=== PATIENT | female | born 1950 | race Caucasian/White ===

== ENCOUNTER → 2016-08-29 | Outpatient (CLI) | payer OTHER ==
[~2016-08-29] MED LIST: ACET650T82 PO; ATEN50TA8 PO; HYDR25TA4 PO; OMEP40CA41 PO; PEDICHW34 PO
--- NOTE | 2016-09-01 12:25 | MAMMOGRAPHY REPORT ---
BILATERAL DIGITAL SCREENING MAMMOGRAM WITH CAD: 08/29/2016 CLINICAL HISTORY: Routine screening. Patient has no complaints. TECHNIQUE: Current study was also evaluated with a Computer Aided Detection (CAD) system. Bilatera l CC and MLO views were obtained. COMPARISON: Comparison is made to exams dated: 04/20/2015 mammogram, 09/16/2013 mammogram, 03/04/2013 mammogram, 03/04/2013 ultrasound, 02/28/2013 mammogram, and 11/12/2011 mammogram - [facility]. BREAST COMPOSITION: The tissue of both breasts is almost entirely fatty. FINDINGS: There are possible new grouped calcifications within the left central breast, which could represent fat necrosis from prior surgery, however, spot magnification views are recommended for fur ther evaluation. The remainder of both breasts are stable compared to prior exams, without suspicious masses, calcifi cations, or areas of architectural distortion noted. There are stable post surgical changes from bi lateral reduction mammoplasty. IMPRESSION: ACR BI-RADS CATEGORY 0: INCOMPLETE EVALUATION: NEED ADDITIONAL IMAGING EVALUATION Left breast calcifications, for which additional imaging evaluation is recommended. The patient sherlyn l be called to schedule an appointment. Approximately 10% of breast cancers are not detected with mammography. A negative mammographic repor t should not delay biopsy if a clinically suggestive mass is present. Ngozi Gomez M.D. /:08/29/2016 16:31:37 Senior Investment Manager: Wen CHAO)(Ag), [facility] letter sent: Addl Imaging 0 BI-RADS Code: ACR BI-RADS Category 0: Incomplete Evaluation: Need Additional Imaging Evaluation
== END | disposition home or self-care (01) ==
LOC: C.MAMM 11:16
PROVIDERS: ATTEND Obstetrics & Gynecology
DX: Z12.31 Encounter for screening mammogram for malignant neoplasm of breast (principal); R92.1 Mammographic calcification found on diagnostic imaging of breast

== ENCOUNTER → 2016-09-26 | Outpatient (CLI) | payer OTHER ==
--- NOTE | 2016-09-26 12:53 | MAMMOGRAPHY REPORT ---
UNILATERAL LEFT DIGITAL DIAGNOSTIC MAMMOGRAM: 09/26/2016 CLINICAL HISTORY: Callback from screening mammogram for left breast calcifications. TECHNIQUE: Spot magnification left CC and ML views were obtained. COMPARISON: Comparison is made to exams dated: 08/29/2016 mammogram, 06/13/2015 mammogram, 04/20/2015 mammogram, 09/16/2013 mammogram, 03/04/2013 mammogram, and 03/04/2013 ultrasound - [facility]. BREAST COMPOSITION: The tissue of the left breast is almost entirely fatty. FINDINGS: There is an 11 mm group of faint heterogeneous calcifications in the left central breast, which are not clearly evident on prior exams. Given the heterogeneous morphology and given that the calcifications are new, they are indeterminate and stereotactic biopsy is recommended for further e valuation. IMPRESSION: ACR BI-RADS CATEGORY 4: SUSPICIOUS New grouped calcifications in the left central breast are indeterminate and stereotactic biopsy is r ecommended for further evaluation. A phone call was made to the physician's office to confirm faxed results were received. The patient has been verbally notified of the results. She tentatively scheduled the biopsy before leaving the department. Approximately 10% of breast cancers are not detected with mammography. A negative mammographic repor t should not delay biopsy if a clinically suggestive mass is present. Ngozi Gomez M.D. /:09/26/2016 08:44:29 Casting House Laborer: Patsy Fuentes, [facility] letter sent: Abnormal 4/5 BI-RADS Code: ACR BI-RADS Category 4: Suspicious
== END | disposition home or self-care (01) ==
LOC: C.MAMM 08:21
PROVIDERS: ATTEND Obstetrics & Gynecology
DX: R92.1 Mammographic calcification found on diagnostic imaging of breast (principal)

== ENCOUNTER → 2016-10-03 | Outpatient (CLI) | payer OTHER ==
--- NOTE | 2016-10-03 13:12 | Discharge Instructions ---
Discharge Instructions Procedure Procedure Date: Oct 03, 2016. Reason for visit: Left Calcs. Discharge Discharge Date: Oct 03, 2016. Discharge Diagnosis: status post breast biopsy Instructions Activity Recommendations: Additional Limitations (see below) Return to School/Work: no limitations Recommended Home Diet: No Limitations Provider Instructions: ACTIVITY RECOMMENDATIONS: * No lifting, pushing, pulling or exercising the affected side for three days. RETURN TO SCHOOL/WORK: * You may return to work/school after the procedure, but do not perform any strenuous activities for 24 to 48 hours. MEDICATIONS: * Tylenol (two 325 mg) every four to six hours if needed for mild pain (if not allergic to Tylenol). DIET: * Resume previous diet. SPECIAL CARE INSTRUCTIONS: * Keep biopsy site dry for 24 hours. May shower after 24 hours, but do not soak (bathe) incision. * May remove Tegaderm (plastic patch) tomorrow AFTER showering. * Leave the steri-strips on for one week. Allow the steri-strips to fall off by themselves. If not off after one week, you may remove them. You may place a Bandaid crosswise over the strips, if desired. * Apply ice 10 minutes on and 10 minutes off as needed. * Wear a bra at bedtime to sleep more comfortably for 2-3 days. * Your referring physician should have the results after approximately 5 to 7 business days. * Call for unusual bleeding, fever, drainage, etc or if you have any questions call during normal business hours or after hours call Dr Gomez, . FOLLOW UP VISIT: Follow-up with Referring Physician as scheduled. Allergies Coded Allergies: Atropine (Verified Allergy, Unknown, RASH, 07/22/12) Hyoscyamine (Verified Allergy, Unknown, RASH, 07/22/12) Phenobarbital (Verified Allergy, Unknown, RASH, 07/22/12) Scopolamine (Verified Allergy, Unknown, RASH, 07/22/12) Latex1 -Allergic Contact Dermititis (Verified Allergy, red sore skin, 07/13) Sveta Soto Recommendations: Call your doctor if: * Temperature above 101 degrees * Pain not relieved by pain medicine ordered * There is increased drainage or redness from any incision * You have any unanswered questions or concerns. Your Doctors Instructions noted above were prepared by provider Ngozi Gomez. Patient Signature Section: Patient Instructions Signature Page Sravanthi Butt Patient (or Guardian) Signature/Date: I have read and understand the instructions given to me by my caregivers. Caregiver/RN/Doctor Signature/Date: The above-named patient and/or guardian has received patient instructions on this date. + Original Patient Signature Page (only) stays with chart. Please make copy for patient.
--- NOTE | 2016-10-03 14:23 | MAMMOGRAPHY REPORT ---
STEREOTACTIC GUIDED BIOPSY LEFT BREAST: 10/03/2016 CLINICAL HISTORY: Left central breast calcifications. PATIENT CONSENT: The procedure, risks, benefits, and alternatives of stereotactic biopsy with clip pl acement were discussed with the patient, and verbal and written consent was obtained. A timeout was performed immediately prior to the procedure. PROCEDURE DESCRIPTION: With stereotactic guidance, aseptic technique, and lidocaine as a local anesth etic (1% lidocaine to anesthetize the skin and 1% lidocaine with epinephrine to anesthetize the deepe r tissues), the area of concern was sampled multiple times with a 9-gauge vacuum-assisted biopsy need le (Suros Eviva). The path of approach was lateral. The specimen radiograph demonstrates calcificat ions to be present in the samples; the samples containing calcifications (labeled "A") were from the samples without calcifications (labeled "B"). A metallic marker clip was placed at the bio psy site. This was confirmed on postprocedure mammograms. Direct pressure was applied at the biopsy site and hemostasis was readily achieved. The patient tolerated the procedure without complication. She was given wound care instructions. COMPARISON: Comparison is made to exams dated: 09/26/2016 mammogram, 08/29/2016 mammogram, 06/13/2015 m ammogram, 04/20/2015 mammogram, 02/28/2013 mammogram, and 11/12/2011 mammogram - [facility]. IMPRESSION: STEREOTACTIC GUIDED BIOPSY Stereotactic biopsy of indeterminate calcifications in the left central breast, with clip placement. The patient will receive pathology results from her referring provider. Ngozi Gomez M.D. ah/:10/03/2016 13:14:20 Attending Technologist: Patsy Clayton RT(R)(M), [facility] Photography Colorist: Zeeshan Elam RT(R)(M), [facility]
--- NOTE | 2016-10-03 14:25 | MAMMOGRAPHY REPORT ---
UNILATERAL LEFT DIGITAL DIAGNOSTIC MAMMOGRAM: 10/03/2016 CLINICAL HISTORY: Status post left breast stereotactic biopsy. TECHNIQUE: Left CC and LM views were obtained. COMPARISON: Comparison is made to exams dated: 09/26/2016 mammogram, 08/29/2016 mammogram, 06/13/2015 m ammogram, and 04/20/2015 mammogram - [facility]. BREAST COMPOSITION: The tissue of the left breast is almost entirely fatty. FINDINGS: Preprocedural left LM view was obtained for biopsy planning purposes. Postprocedural left upper limb and cc views were obtained, which shows a new biopsy marker clip in the left breast statu s post stereotactic biopsy of left central breast calcifications. There is mild medial migration of the biopsy marker clip by approximately 1.5 cm, likely due to accordion effect. No significant postb iopsy hematoma is seen. IMPRESSION: POST PROCEDURE IMAGING FOR MARKER PLACEMENT New biopsy marker clip status post left breast stereotactic biopsy. Pathology results are pending. Approximately 10% of breast cancers are not detected with mammography. A negative mammographic report should not delay biopsy if a clinically suggestive mass is present. Ngozi Gomez M.D. /:10/03/2016 13:33:51 [place] Polisher: Zeeshan ANTOINE(Larry)(Ag), [facility] BI-RADS Code: Post Procedure Imaging For Marker Placement
== END | disposition home or self-care (01) ==
LOC: C.MAMM 12:24
PROVIDERS: ATTEND Obstetrics & Gynecology
DX: R92.0 Mammographic microcalcification found on diagnostic imaging of breast (principal)

== ENCOUNTER → 2017-01-02 | Outpatient (CLI) | payer OTHER ==
[2017-01-02 14:57] LABS: BLOOD UREA NITROGEN 18 mg/dl (7-18); CREATININE 0.83 mg/dl (0.60-1.20)
== END | disposition home or self-care (01) ==
LOC: C.LAB 12:23
PROVIDERS: ATTEND Obstetrics & Gynecology
DX: M54.9 Dorsalgia, unspecified (principal); R10.2 Pelvic and perineal pain

== ENCOUNTER → 2017-01-13 | Outpatient (CLI) | payer OTHER | END | disposition home or self-care (01) | LOC: C.PAPS 15:16 | PROVIDERS: ATTEND Obstetrics & Gynecology | DX: Z01.419 Encounter for gynecological examination (general) (routine) without abnormal findings (principal) ==

== ENCOUNTER 2019-10-09 18:07 | Observation (INO) ==
[2019-10-09] MEDS ORDERED: ONDANSETRON INJ 2 MG/ML 2 ML VIAL IV STA (18:43)
[2019-10-09] MEDS ORDERED: LIDOCAINE HCL 1% 20 ML VIAL INFIL ONE (18:43)
[2019-10-09] MEDS ORDERED: DIPHTHERIA/TETANUS/PERTUSSIS 0.5 ML SYR/VIAL IM ONE (18:43)
[2019-10-09] MEDS ORDERED: MoRPHine SULFATE 4 MG/ML 1 ML CARP\\VIAL IV STA (18:43)
--- NOTE | 2019-10-09 18:50 | Emergency Department Note ---
History of Present Illness General Chief complaint: Laceration/Cut (Suture/Dermabond) Stated complaint: LAC ON HEAD Time Seen by Provider: 10/09/19 18:34 Source: patient History of Present Illness Provider complaint: Back pain Onset (ago): minute(s) Location: back Radiation: flank (Bilaterally) Severity: moderate Pain Consistency: + constant Quality: + sharp Exacerbated By: + movement Associated symptoms: no cough, no fever/chills and no nausea/vomiting This is a 69-year-old woman who presents with injuries after a fall. The patient states that she was using a Rototiller which had some hard ground and jerked forward pulling her down onto the ground with it. She hit her head on the Rototiller then fell face first onto the ground. She did have a few seconds of LOC per her daughter. She complains of a diffuse headache. She also states that her nose feels broken. She mostly complains of back pain which is in the m id back radiating to her flanks and ribs. She describes it as sharp. Is worse with movement and deep breaths. She does have some associated shortness of breath with it. She denies any recent illness or fever. She denies any abdominal pain. She has no hip pain or extremity pain. She does not know her last tetanus shot and believes she is not up-to-date. She complains of mid facial pain but no jaw pain. Home Medications Home Medications Medication Instructions Recorded Confirmed Type atenolol 50 mg tablet 50 mg PO DAILY 01/28/19 10/09/19 History hydrochlorothiazide 25 mg tablet 25 mg PO DAILY 01/28/19 10/09/19 History omeprazole 40 mg capsule,delayed 40 mg PO BID 01/28/19 10/09/19 History release calcium carbonate-vitamin D3 1 tab PO BID 10/09/19 10/09/19 History [Caltrate 600 plus D] cholecalciferol (vitamin D3) 50 mcg PO DAILY 10/09/19 10/09/19 History [Vitamin D3] garlic 1,000 mg PO DAILY 10/09/19 10/09/19 History meloxicam [Mobic] 15 mg PO DAILY 10/09/19 10/09/19 History multivitamin 1 tab PO DAILY 10/09/19 10/09/19 History Allergies Allergy/AdvReac Type Severity Reaction Status Date / Time atropine Allergy Unknown RASH Verified 10/09/19 19:00 hyoscyamine Allergy Unknown RASH Verified 10/09/19 19:00 phenobarbital Allergy Unknown RASH Verified 10/09/19 19:00 scopolamine Allergy Unknown RASH Verified 10/09/19 19:00 latex Allergy red sore Verified 10/09/19 19:00 skin Past Med/Surg History Medical History Acid reflux disease with ulcer (Chronic) HTN, goal to be determined (Chronic) Surgical History H/O abdominoplasty (Resolved) History of bladder surgery (Resolved) History of hernia surgery (Resolved) S/P cholecystectomy (Resolved) S/P hysterectomy (Resolved) Social History Preferred Language: [place] Visual Impairment: Partially Limited Hearing Ability: Normal Beliefs That Will Affect Care: None marital status: Current Living Situation: Spouse current occupational status: retired Feels Safe at Home: Yes Smoking Status: Never smoker Hx Alcohol Use: Yes (seldom) Alcohol Intake Frequency: Rarely Hx Substance Use: No Review of Systems See HPI for pertinent positives & negatives. and A total of 10 systems reviewed and were otherwise negative Physical Exam Vital Signs Vital Signs - 24 hr 10/09/19 18:08 10/09/19 18:42 10/09/19 20:00 Pulse Rate 50 L Pulse Rate [Finger] 66 Pulse Rate from SpO2 Sensor Pulse Rhythm [Finger] Regular Pulse Strength [Finger] Normal Respiratory Rate 20 18 Respiratory Effort / Characteristics Non-Labored Spontaneous Respiratory Depth Normal Respiratory Pattern Regular Blood Pressure 147/81 H Blood Pressure [Right Arm] 131/84 Blood Pressure Mean 103 Blood Pressure Mean [Right Arm] 99 Blood Pressure Position [Right Arm] Lying Pulse Oximetry 98 96 Oxygen Delivery Method Room Air Room Air Room Air Sepsis Recent Fever Within 48 Hours No Sepsis New/Unexplained Change in Mental Status No Sepsis Action Taken by Nursing No Action Required 10/09/19 20:29 10/09/19 20:42 10/09/19 21:00 Pulse Rate 65 72 51 L Pulse Rate [Finger] Pulse Rate from SpO2 Sensor 64 66 51 L Pulse Rhythm [Finger] Pulse Strength [Finger] Respiratory Rate Respiratory Effort / Characteristics Respiratory Depth Respiratory Pattern Blood Pressure 131/84 Blood Pressure [Right Arm] Blood Pressure Mean 106 Blood Pressure Mean [Right Arm] Blood Pressure Position [Right Arm] Pulse Oximetry 97 97 97 Oxygen Delivery Method Sepsis Recent Fever Within 48 Hours Sepsis New/Unexplained Change in Mental Status Sepsis Action Taken by Nursing Constitutional: Vital signs reviewed. Eyes: Pupils are equal round reactive to light. Conjunctiva are noninjected. ENT: Pharynx is clear without erythema or exudate. Mucous membranes are moist. Tenderness and swelling to the nasal bridge without septal hematoma or active epistaxis. There is some mild mid facial tenderness without bony depression or mobility. No midline tenderness to cervical spine. Respiratory: Clear to auscultation bilaterally. Breath sounds are equal bilaterally. Cardiovascular: Regular rate and rhythm. No rubs or gallops. GI: Soft, nondistended and nontender. Bowel sounds are present. Musculoskeletal: Tenderness to the lower thoracic spine without step-off or deformity. No tenderness to the hips or lower extremities or upper extremities. Integumentary: 2.5 cm laceration to the right scalp. Neurological: The patient is awake and alert. Cranial nerves II to XII are intact. No entrapment with extraocular movements. No diplopia. Motor and sensation are intact throughout all extremities. Psychiatric: Anxious. Procedures Laceration Laceration 1: Site: scalp Side (If applicable): right Size (cm): 2.5 Description: other (L-shaped) Depth: simple, single layer Local Anesthetic: lidocaine 1% Amount of anesthesia used (mL): 3 Pre-repair: wound explored and irrigated extensively Skin layer closed with: other (skin staple) Number of sutures: 3 Course Administered Medications Potassium Chloride 40 meq/ (Sodium Chloride) 1,020 mls @ 60 mls/hr IV .Q17H ONE Stop: 10/10/19 15:44 Last Admin: 10/09/19 23:52 Dose: 60 mls/hr Documented by: [id number] Ketorolac Tromethamine (Toradol) 15 mg IV Q6H PRN PRN Reason: Pain Stop: 10/14/19 21:29 Last Admin: 10/09/19 22:31 Dose: 15 mg Documented by: [id number] Lidocaine (Lidoderm 5%) 1 patch TD 2100 CHECO Stop: 11/08/19 20:59 Last Admin: 10/09/19 21:01 Dose: 1 patch Documented by: [id number] Discontinued Medications Diphtheria/Pertussis/Tetanus Vacc (Adacel) 0.5 ml IM .ONCE ONE Stop: 10/09/19 18:44 Last Admin: 10/09/19 19:27 Dose: 0.5 ml Documented by: [id number] Magnesium Sulfate/Dextrose (Magnesium Sulfate / D5w) 1 gm in 100 mls @ 100 mls/hr IV ONE ONE Stop: 10/09/19 23:44 Last Admin: 10/09/19 23:53 Dose: 100 mls/hr Documented by: [id number] Ioversol (Optiray 320 100ml) 94 ml IV ONCE PRN PRN Reason: Interaction Checking Stop: 10/13/19 19:26 Last Admin: 10/09/19 19:27 Dose: 94 ml Documented by: [id number] Lidocaine HCl (Xylocaine 1% (Local)) 10 ml INFIL NOW ONE Stop: 10/09/19 18:44 Last Admin: 10/09/19 20:44 Dose: 10 ml Documented by: [id number] Morphine Sulfate (Morphine Sulfate) 4 mg IV NOW STA Stop: 10/09/19 18:44 Last Admin: 10/09/19 19:26 Dose: 4 mg Documented by: [id number] Ondansetron HCl (Zofran) 4 mg IV NOW STA Stop: 10/09/19 18:44 Last Admin: 10/09/19 19:26 Dose: 4 mg Documented by: [id number] Potassium Chloride (Klor-Con M20) 40 meq PO NOW STA Stop: 10/09/19 22:27 Last Admin: 10/09/19 23:53 Dose: 40 meq Documented by: [id number] Medical Decision Making Differential Diagnosis ICH, skull fracture, facial fracture, vertebral fracture, rib fracture, visceral injury Medical Records Attestation: I reviewed the patient's medical records. I did perform a limited focused review of portions of the patient's old chart on the electronic medical record. The patient has had no recent pertinent visits to this hospital. Home Medications Current Medication List: was personally reviewed by me Laboratory Data Attestation: I reviewed the patient's lab results. Result diagrams: 10/09/19 19:55 10/09/19 21:17 Lab Results 10/09/19 10/09/19 10/09/19 Range/Units 19:01 19:55 19:55 WBC 11.74 H (4.8-10.8) K/uL RBC 4.35 (4.2-5.4) M/uL Hgb 13.0 (12.0-16.0) g/dL POC Hgb 13.3 (12.0-16.0) g/dl Hct 38.1 (37-47) % POC Hct 39 (37-47) % MCV 87.6 (80-100) fL MCH 29.9 (25-34) pg MCHC 34.1 (32-36) g/dL RDW Std Deviation 43.8 (36.4-46.3) fL RDW Coeff of Aylin 13.6 (11.5-14.5) % Plt Count 222 (130-400) K/uL MPV 11.4 H (7.4-10.4) fL Immature Gran % (Auto) 0.4 % Neut % (Auto) 87.6 % Lymph % (Auto) 7.7 % [place] % (Auto) 3.4 % Eos % (Auto) 0.7 % Baso % (Auto) 0.2 % Immature Gran # (Auto) 0.05 H (0.00-0.02) K/uL Neut # (Auto) 10.29 H (1.4-6.5) K/uL Lymph # (Auto) 0.90 L (1.2-3.4) K/uL [place] # (Auto) 0.40 (0.11-0.59) K/uL Eos # (Auto) 0.08 (0-0.5) K/uL Baso # (Auto) 0.02 (0-0.2) K/uL POC Sodium 138 (135-144) mmol/L Sodium 137 (136-145) mmol/L POC Potassium 3.1 L (3.3-5.0) mmol/L Potassium (3.5-5.1) mmol/L POC Chloride 105 (101-112) mmol/L Chloride 104 (98-107) mmol/L Carbon Dioxide 25 (21-32) mmol/L POC Total CO2 23 L (24-31) mmol/L Anion Gap 8.0 (3-11) POC Anion Gap 14.0 L (16-25) mmol/L POC BUN 28 H (7-18) mg/dl BUN 24 H (7-18) mg/dl Creatinine 0.99 (0.6-1.2) mg/dl POC Creatinine 0.9 (0.6-1.3) mg/dl Est Cr Clr Drug Dosing 64.8 ml/min Est GFR ( Amer) 66.9 Est GFR (Non-Af Amer) 57.7 BUN/Creatinine Ratio 24.4 H (10-20) Glucose 146 H (70-99) mg/dl POC Glucose (other) 149 H (70-99) mg/dl Calcium 9.8 (8.5-10.1) mg/dl POC Ioniz Calcium Katie 1.20 (1.12-1.32) mmol/l Magnesium Cancelled Total Bilirubin 0.6 (0.2-1) mg/dl AST (15-37) U/L ALT 28 (12-78) U/L Alkaline Phosphatase 66 (45-117) U/L Total Protein 7.6 (6.4-8.2) gm/dl Albumin 3.6 (3.4-5.0) gm/dl Globulin 4.0 (2.5-4.0) gm/dl Albumin/Globulin Ratio 0.9 (0.9-2) 10/09/19 Range/Units 21:17 WBC (4.8-10.8) K/uL RBC (4.2-5.4) M/uL Hgb (12.0-16.0) g/dL POC Hgb (12.0-16.0) g/dl Hct (37-47) % POC Hct (37-47) % MCV (80-100) fL MCH (25-34) pg MCHC (32-36) g/dL RDW Std Deviation (36.4-46.3) fL RDW Coeff of Aylin (11.5-14.5) % Plt Count (130-400) K/uL MPV (7.4-10.4) fL Immature Gran % (Auto) % Neut % (Auto) % Lymph % (Auto) % [place] % (Auto) % Eos % (Auto) % Baso % (Auto) % Immature Gran # (Auto) (0.00-0.02) K/uL Neut # (Auto) (1.4-6.5) K/uL Lymph # (Auto) (1.2-3.4) K/uL [place] # (Auto) (0.11-0.59) K/uL Eos # (Auto) (0-0.5) K/uL Baso # (Auto) (0-0.2) K/uL POC Sodium (135-144) mmol/L Sodium (136-145) mmol/L POC Potassium (3.3-5.0) mmol/L Potassium 2.8 L (3.5-5.1) mmol/L POC Chloride (101-112) mmol/L Chloride (98-107) mmol/L Carbon Dioxide (21-32) mmol/L POC Total CO2 (24-31) mmol/L Anion Gap (3-11) POC Anion Gap (16-25) mmol/L POC BUN (7-18) mg/dl BUN (7-18) mg/dl Creatinine (0.6-1.2) mg/dl POC Creatinine (0.6-1.3) mg/dl Est Cr Clr Drug Dosing ml/min Est GFR ( Amer) Est GFR (Non-Af Amer) BUN/Creatinine Ratio (10-20) Glucose (70-99) mg/dl POC Glucose (other) (70-99) mg/dl Calcium (8.5-10.1) mg/dl POC Ioniz Calcium Katie (1.12-1.32) mmol/l Magnesium 1.9 Total Bilirubin (0.2-1) mg/dl AST (15-37) U/L ALT (12-78) U/L Alkaline Phosphatase (45-117) U/L Total Protein (6.4-8.2) gm/dl Albumin (3.4-5.0) gm/dl Globulin (2.5-4.0) gm/dl Albumin/Globulin Ratio (0.9-2) Imaging Data Radiologist's Impression: CT thoracic spine wo con CT DOSE: HISTORY: Trauma. Pain. trauma eval for injury TECHNIQUE: Multiaxial CT images of the thoracic spine were performed and reformatted in the sagittal and coronal plane without the use of contrast. A dose lowering technique was utilized adhering to the principles of ALARA. COMPARISON: None. FINDINGS: No fractures. No subluxation. Paraspinal soft tissues are unremarkable. Slight wedge deformity T12 of uncertain age. Osteopenia. IMPRESSION: 1. Slight wedge deformity superior endplate T12 uncertain age. 2. Generalized degenerative disc change. 3. Osteopenia. ACT 112: Negative or not required by law. The above report was generated using voice recognition software. It may contain grammatical, syntax or spelling errors. Electronically signed by: Lan Dueñas M.D. 10/09/2019 7:[address] lumbar spine wo con CT DOSE: HISTORY: trauma eval for injury TECHNIQUE: Multiaxial CT images of the lumbar spine were performed and reformatted in the sagittal and coronal plane without the use of contrast. A dose lowering technique was utilized adhering to the principles of ALARA. COMPARISON: None. FINDINGS: No fractures. No subluxation. Paraspinal soft tissues are unremarkable. Moderate generalized degenerative disc change. Osteopenia. IMPRESSION: No fractures within the lumbar spine. ACT 112: Negative or not required by law. The above report was generated using voice recognition software. It may contain grammatical, syntax or spelling errors. Electronically signed by: Lan Dueñas M.D. 10/09/2019 7:[address] head/brain wo con CT DOSE: HISTORY: Trauma trauma eval for injury TECHNIQUE: Multiaxial CT images of the head were performed without the use of intravenous contrast. A dose lowering technique was utilized adhering to the principles of ALARA. Comparison: None. Findings: Fracture posterior left maxillary sinus. Hypertrophic and edematous changes the nasal turbinates. The calvarium and skull base are intact. The ventricles and sulci are within normal limits. There is no mass, hematoma, midline shift, or acute infarct. Impression: No acute intracranial abnormality. Normal brain. Probable left maxillary sinus fracture. ACT 112: Negative or not required by law. The above report was generated using voice recognition software. It may contain grammatical, syntax or spelling errors. Electronically signed by: Lan Dueñas M.D. 10/09/2019 7:[address] facial bones wo con CT DOSE: HISTORY: Trauma. Pain. trauma eval for injury TECHNIQUE: Multiaxial CT images of the maxillofacial region were performed and reformatted in the coronal plane without the use of contrast. A dose lowering technique was utilized adhering to the principles of ALARA. COMPARISON: None. FINDINGS: The right orbital margins intact. There is a fracture of the base of the left orbital margin. Estimated anterior displacement of 2 mm. There is no evidence for muscular entrapment. There is a fracture lateral wall left maxillary sinus, as well as a nondisplaced hairline fracture medial wall left maxillary sinus. There is considerable hypertrophic and/or edematous changes the nasal turbinates bilaterally. All remaining sinuses are grossly clear. IMPRESSION: 1. Fracture lateral and medial wall left maxillary sinus. 2.. Fracture left inferior orbital floor with inferior displacement of 2 mm. No evidence for muscular trapment. 3. Edematous changes the nasal turbinates bilaterally. ACT 112: Negative or not required by law. The above report was generated using voice recognition software. It may contain grammatical, syntax or spelling errors. Electronically signed by: Lan Dueñas M.D. 10/09/2019 7:[address] chest w con CT DOSE: HISTORY: Trauma trauma eval for injury TECHNIQUE: Multiaxial CT images of the chest were performed following the intravenous administration of contrast. A dose lowering technique was utilized adhering to the principles of ALARA. COMPARISON: None. FINDINGS: Nondisplaced fractures right fourth through seventh ribs. Small right effusion. Lungs otherwise appear clear. No evidence for pneumothorax. No significant mediastinal or hilar adenopathy. IMPRESSION: 1. Nondisplaced cortical fractures right fourth through seventh ribs 2. Small right pleural effusion. 3. Study is otherwise negative. ACT 112: Negative or not required by law. The above report was generated using voice recognition software. It may contain grammatical, syntax or spelling errors. Electronically signed by: Lan Dueñas M.D. 10/09/2019 7:[address] cervical spine wo con CT DOSE: 3042.51 mGy.cm HISTORY: Trauma. Pain. trauma eval for injury TECHNIQUE: Multiaxial CT images of the cervical spine were performed and reformatted in the sagittal and coronal plane without the use of contrast. A dose lowering technique was utilized adhering to the principles of ALARA. COMPARISON: None. FINDINGS: No fractures. No subluxation. Prevertebral soft tissues and the C1-C2 interval are intact. No pneumothorax. Moderate degenerative disc change from C4 through C7 IMPRESSION: No fractures within the cervical spine. Moderate degenerative change. ACT 112: Negative or not required by law. The above report was generated using voice recognition software. It may contain grammatical, syntax or spelling errors. Electronically signed by: Lan Dueñas M.D. 10/09/2019 7:[address] abd pelvis IV con only CT DOSE: HISTORY: trauma eval for injury TECHNIQUE: Multiaxial CT images of the abdomen and pelvis were performed following the use of intravenous contrast. A dose lowering technique was utilized adhering to the principles of ALARA. COMPARISON STUDY: None. FINDINGS: Fracture of several right ribs in the midaxillary line as previously described. The liver spleen and pancreas are unremarkable. Kidneys enhance uniformly. There are several small parapelvic cysts bilaterally. Nonobstructive bowel pattern. Bladder is midline. There is no free fluid within the abdomen or pelvic cul-de-sac regions. Minimal right inguinal infiltrative change possibly related to prior surgical or other intervention. Slight wedge deformity superior endplate T12. IMPRESSION: 1. Slight wedge deformity superior endplate T12. This appears to be acute. 2. Small right pleural effusion. 3. Several right rib fractures which have been described previously. 4. No additional acute abnormality of the abdomen or pelvis. ACT 112: Negative or not required by law. The above report was generated using voice recognition software. It may contain grammatical, syntax or spelling errors. Electronically signed by: Lan Dueñas M.D. 10/09/2019 7:41 PM Blood Pressure Blood Pressure Findings: Elevated blood pressure Blood Pressure Disposition: further management by hospitalist Head Trauma GCS Score: 15 MDM Narrative I did evaluate the patient as noted above. The patient is presenting with injuries after using her Rototiller which pulled her forward and she landed on her face with LOC. IV access was established. I did place an order for continuous cardiac monitoring. The monitor showed sinus bradycardia rate of 50. I did treat her with IV morphine and Zofran. She was also given an Adacel booster IM. I did order and review the patient's blood work as noted in the electronic medical record. Her white blood cell count is slightly elevated. She is not anemic. Potassium is 3.1. I did order a CT of the head, facial bones, cysts fine, chest, abdomen and pelvis. I did review the images myself as well as the radiology report as described above. She has a T12 mild wedge deformity. She also has 4 rib fractures on the right side. There is a small pleural effusion as well on the right side. She also has a maxillary sinus fracture and left orbital fracture. I did discuss the test results with the patient. I did recommend hospitalization for further care and evaluation. I did repair her laceration as described above. I did discuss case with the hospitalist and case management director. Impression & Plan Multiple fractures of ribs, Closed T12 fracture, Head injury, closed, with brief LOC, Laceration of scalp, Extensive facial fractures Discharge Plan Visit Data *Final* Discharge Date/Time: 10/09/19 22:11 Chief Complaint: Laceration/Cut (Suture/Dermabond) Stated Complaint: LAC ON HEAD ED Provider: Andre Mckinley Discharge Problem: Multiple fractures of ribs, Closed T12 fracture, Head injury, closed, with brief LOC, Laceration of scalp, Extensive facial fractures Patient Disposition: Admitted As Inpatient Discharge Instructions Interventions: ED Discharge Assessment Last Done: 10/09/19 22:11 Discharge Problem: Multiple fractures of ribs Qualifiers: Encounter type: initial encounter Fracture type: closed Laterality: right Qualified Code(s): S22.41XA - Multiple fractures of ribs, right side, initial encounter for closed fracture Closed T12 fracture Qualifiers: Encounter type: initial encounter Fracture morphology: wedge compression Qualified Code(s): S22.080A - Wedge compression fracture of T11-T12 vertebra, initial encounter for closed fracture Laceration of scalp Qualifiers: Encounter type: initial encounter Qualified Code(s): S01.01XA - Laceration without foreign body of scalp, initial encounter Extensive facial fractures Qualifiers: Encounter type: initial encounter Fracture type: closed Qualified Code(s): S02.92XA - Unspecified fracture of facial bones, initial encounter for closed fracture
[2019-10-09 19:03] LABS: Basophils # (auto) 0.02 K/uL (0-0.2); Basophils % (auto) 0.2 %; Eosinophils # (auto) 0.08 K/uL (0-0.5); Eosinophils % (auto) 0.7 %; Hematocrit (blood only) 38.1 % (37-47); Immature Granulocytes # (auto) 0.05 K/uL (0.00-0.02); Immature Granulocytes % (auto) 0.4 %; Lymphocytes % (auto) 7.7 %; Mean Corpuscular Hemoglobin 29.9 pg (25-34); Mean Corpuscular Hgb Conc 34.1 g/dL (32-36); Mean Corpuscular Volume 87.6 fL (80-100); Mean Platelet Volume 11.4 fL (7.4-10.4); Monocytes % (auto) 3.4 %; Neutrophils # (auto) 10.29 K/uL (1.4-6.5); Neutrophils % (auto) 87.6 %; Platelet Count 222 K/uL (130-400); RDW Coefficient of Variation 13.6 % (11.5-14.5); RDW Standard Deviation 43.8 fL (36.4-46.3); Red Blood Count 4.35 M/uL (4.2-5.4); White Blood Count 11.74 K/uL (4.8-10.8)
[2019-10-09 19:13] LABS: iSTAT Creatinine 0.9 mg/dl (0.6-1.3); iSTAT Hemoglobin 13.3 g/dl (12.0-16.0); iSTAT Ionized Calcium 1.2 mmol/l (1.12-1.32); iSTAT Potassium 3.1 mmol/L (3.3-5.0)
[2019-10-09] MEDS ORDERED: IOVERSOL 100ml IV PRN (19:27)
--- NOTE | 2019-10-09 19:27 | CT Scan Report ---
CT head/brain wo con CT DOSE: HISTORY: Trauma trauma eval for injury TECHNIQUE: Multiaxial CT images of the head were performed without the use of intravenous contrast. A dose lowering technique was utilized adhering to the principles of ALARA. Comparison: None. Findings: Fracture posterior left maxillary sinus. Hypertrophic and edematous changes the nasal turbi nates. The calvarium and skull base are intact. The ventricles and sulci are within normal limits. Th ere is no mass, hematoma, midline shift, or acute infarct. Impression: No acute intracranial abnormality. Normal brain. Probable left maxillary sinus fracture. ACT 112: Negative or not required by law. The above report was generated using voice recognition software. It may contain grammatical, syntax or spelling errors. Electronically signed by: Lan Dueñas M.D. 10/09/2019 7:26 PM
--- NOTE | 2019-10-09 19:29 | CT Scan Report ---
CT cervical spine wo con CT DOSE: 3042.51 mGy.cm HISTORY: Trauma. Pain. trauma eval for injury TECHNIQUE: Multiaxial CT images of the cervical spine were performed and reformatted in the sagittal and coronal plane without the use of contrast. A dose lowering technique was utilized adhering to th e principles of ALARA. COMPARISON: None. FINDINGS: No fractures. No subluxation. Prevertebral soft tissues and the C1-C2 interval are intact. No pneumothorax. Moderate degenerative disc change from C4 through C7 IMPRESSION: No fractures within the cervical spine. Moderate degenerative change. ACT 112: Negative or not required by law. The above report was generated using voice recognition software. It may contain grammatical, syntax or spelling errors. Electronically signed by: Lan Dueñas M.D. 10/09/2019 7:27 PM
[2019-10-09 19:31] LABS: Albumin Globulin Ratio 0.9 (0.9-2); Albumin Level 3.6 gm/dl (3.4-5.0); BUN Creatinine Ratio 24.4 (10-20); Bilirubin,Total 0.6 mg/dl (0.2-1); Calcium 9.8 mg/dl (8.5-10.1); Creatinine Clr Calc Pharmacy 64.8 ml/min; Est GFR (African American) 66.9; Est GFR (Non-African American) 57.7; Total Protein 7.6 gm/dl (6.4-8.2)
--- NOTE | 2019-10-09 19:32 | CT Scan Report ---
CT facial bones wo con CT DOSE: HISTORY: Trauma. Pain. trauma eval for injury TECHNIQUE: Multiaxial CT images of the maxillofacial region were performed and reformatted in the cor onal plane without the use of contrast. A dose lowering technique was utilized adhering to the [place]. COMPARISON: None. FINDINGS: The right orbital margins intact. There is a fracture of the base of the left orbital margin. Estimated anterior displacement of 2 mm. There is no evidence for muscular entrapment. There is a fracture lateral wall left maxillary sinus, as well as a nondisplaced hairline fracture me dial wall left maxillary sinus. There is considerable hypertrophic and/or edematous changes the nasal turbinates bilaterally. All remaining sinuses are grossly clear. IMPRESSION: 1. Fracture lateral and medial wall left maxillary sinus. 2.. Fracture left inferior orbital floor with inferior displacement of 2 mm. No evidence for muscular trapment. 3. Edematous changes the nasal turbinates bilaterally. ACT 112: Negative or not required by law. The above report was generated using voice recognition software. It may contain grammatical, syntax or spelling errors. Electronically signed by: Lan Dueñas M.D. 10/09/2019 7:31 PM
--- NOTE | 2019-10-09 19:34 | CT Scan Report ---
CT thoracic spine wo con CT DOSE: HISTORY: Trauma. Pain. trauma eval for injury TECHNIQUE: Multiaxial CT images of the thoracic spine were performed and reformatted in the sagittal and coronal plane without the use of contrast. A dose lowering technique was utilized adhering to th e principles of ALARA. COMPARISON: None. FINDINGS: No fractures. No subluxation. Paraspinal soft tissues are unremarkable. Slight wedge deform ity T12 of uncertain age. Osteopenia. IMPRESSION: 1. Slight wedge deformity superior endplate T12 uncertain age. 2. Generalized degenerative disc change. 3. Osteopenia. ACT 112: Negative or not required by law. The above report was generated using voice recognition software. It may contain grammatical, syntax or spelling errors. Electronically signed by: Lan Dueñas M.D. 10/09/2019 7:33 PM
--- NOTE | 2019-10-09 19:36 | CT Scan Report ---
CT lumbar spine wo con CT DOSE: HISTORY: trauma eval for injury TECHNIQUE: Multiaxial CT images of the lumbar spine were performed and reformatted in the sagittal an d coronal plane without the use of contrast. A dose lowering technique was utilized adhering to the principles of ALARA. COMPARISON: None. FINDINGS: No fractures. No subluxation. Paraspinal soft tissues are unremarkable. Moderate generalized degenerative disc change. Osteopenia. IMPRESSION: No fractures within the lumbar spine. ACT 112: Negative or not required by law. The above report was generated using voice recognition software. It may contain grammatical, syntax or spelling errors. Electronically signed by: Lan Dueñas M.D. 10/09/2019 7:34 PM
--- NOTE | 2019-10-09 19:39 | CT Scan Report ---
CT chest w con CT DOSE: HISTORY: Trauma trauma eval for injury TECHNIQUE: Multiaxial CT images of the chest were performed following the intravenous administration of contrast. A dose lowering technique was utilized adhering to the principles of ALARA. COMPARISON: None. FINDINGS: Nondisplaced fractures right fourth through seventh ribs. Small right effusion. Lungs otherwise appear clear. No evidence for pneumothorax. No significant mediastinal or hilar adenopathy. IMPRESSION: 1. Nondisplaced cortical fractures right fourth through seventh ribs 2. Small right pleural effusion. 3. Study is otherwise negative. ACT 112: Negative or not required by law. The above report was generated using voice recognition software. It may contain grammatical, syntax or spelling errors. Electronically signed by: Lan Dueñas M.D. 10/09/2019 7:38 PM
--- NOTE | 2019-10-09 19:43 | CT Scan Report ---
CT abd pelvis IV con only CT DOSE: HISTORY: trauma eval for injury TECHNIQUE: Multiaxial CT images of the abdomen and pelvis were performed following the use of intrave nous contrast. A dose lowering technique was utilized adhering to the principles of ALARA. COMPARISON STUDY: None. FINDINGS: Fracture of several right ribs in the midaxillary line as previously described. The liver spleen and pancreas are unremarkable. Kidneys enhance uniformly. There are several small pa rapelvic cysts bilaterally. Nonobstructive bowel pattern. Bladder is midline. There is no free fluid within the abdomen or pelvic cul-de-sac regions. Minimal right inguinal infiltrative change possibly related to prior surgical or other intervention. Slight wedge deformity superior endplate T12. IMPRESSION: 1. Slight wedge deformity superior endplate T12. This appears to be acute. 2. Small right pleural effusion. 3. Several right rib fractures which have been described previously. 4. No additional acute abnormality of the abdomen or pelvis. ACT 112: Negative or not required by law. The above report was generated using voice recognition software. It may contain grammatical, syntax or spelling errors. Electronically signed by: Lan Dueñas M.D. 10/09/2019 7:41 PM
[2019-10-09] MEDS ORDERED: LIDOCAINE 5% 1 PATCH TD SCH (21:00)
--- NOTE | 2019-10-09 21:17 | History & Physical Report ---
Date of Service October 09, 2019 Assessment & Plan (1) Cerebral concussion: Secondary to fall Traumatic rib fractures secondary to fall Orbital fractures left secondary to head trauma Hypertension slight elevated secondary discomfort Hypokalemia secondary diuretic Rx Hyperglycemia rule out DM Medical telemetry GCS neurochecks Neurology consult RE cerebral concussion Incentive spirometry, analgesia for rib fractures, Lidoderm patch trial ENT consultation Re: Left orbital fracture Orthopedics spine consult Re: T12 compression fracture Replace potassium, hold home diuretic for now Check hemoglobin A1c PT OT eval DVT prophylaxis. SCDs RE traumatic scalp wound Full code Patient's daughter requesting updates from providers. Ms. Niurka Schmitt, contact #[phone]. Text document was generated using [employer] voice recognition software. It may contain grammatical or spelling errors. Kindly contact undersigned for clarification of any documentation item in question. History of Present Illness Chief Complaint: Fall, head trauma Primary Care Provider: Tara Dior, History obtained from patient, family, and records. Medical history significant for hypertension, GERD, chronic back pain, osteoporosis. Patient was using her lawnmower today when the mower hit hard ground jerked forward subsequently putting patient down to the ground culminating in head trauma. As per patient daughter, she rushed to mother after fall. Patient unconscious for me, few moments. Patient woke up with achy headache, swollen le ft eye and achy pleuritic back pain with some shortness of breath. No unusual visual blurriness. Patient brought to the ER for evaluation. Scalp wound stapled at the ER. 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, lives with Allergies Allergy/AdvReac Type Severity Reaction Status Date / Time atropine Allergy Unknown RASH Verified 10/09/19 19:00 hyoscyamine Allergy Unknown RASH Verified 10/09/19 19:00 phenobarbital Allergy Unknown RASH Verified 10/09/19 19:00 scopolamine Allergy Unknown RASH Verified 10/09/19 19:00 latex Allergy red sore Verified 10/09/19 19:00 skin Home Medications Home Medications Medication Instructions Recorded Confirmed Type atenolol 50 mg tablet 50 mg PO DAILY 01/28/19 10/09/19 History hydrochlorothiazide 25 mg tablet 25 mg PO DAILY 01/28/19 10/09/19 History omeprazole 40 mg capsule,delayed 40 mg PO BID 01/28/19 10/09/19 History release calcium carbonate-vitamin D3 1 tab PO BID 10/09/19 10/09/19 History [Caltrate 600 plus D] cholecalciferol (vitamin D3) 50 mcg PO DAILY 10/09/19 10/09/19 History [Vitamin D3] garlic 1,000 mg PO DAILY 10/09/19 10/09/19 History meloxicam [Mobic] 15 mg PO DAILY 10/09/19 10/09/19 History multivitamin 1 tab PO DAILY 10/09/19 10/09/19 History Past Med/Surg History Medical History Acid reflux disease with ulcer (Chronic) HTN, goal to be determined (Chronic) Surgical History H/O abdominoplasty (Resolved) History of bladder surgery (Resolved) History of hernia surgery (Resolved) S/P cholecystectomy (Resolved) S/P hysterectomy (Resolved) Social History Preferred Language: Upper Sorbian Communication Ability: Effective Visual Impairment: Partially Limited Hearing Ability: Normal Beliefs That Will Affect Care: None marital status: Current Living Situation: Spouse current occupational status: retired Other Information That Helps Us Care for You: No Feels Safe at Home: Yes Safety Concerns: Feels Safe At This Time Smoking Status: Never smoker Hx Alcohol Use: No Hx Substance Use: No Review of Systems Review of Systems: As per HPI, all 10 systems reviewed, all other ROS negative Physical Exam Physical Exam: GENERAL: Slightly uncomfortable, pleasant, obese, no respiratory distress SKIN: Normal color, warm HEENT: [place] on right parietal area, bespectacled, periorbital ecchymosis, no ptosis, no EOM entrapment, dry buccal mucosa NECK : Supple, short neck, no tenderness CHEST : CTA, tenderness right chest wall HEART : RRR, no obvious murmurs BACK : midback tenderness, negative straight leg raise test ABDOMEN: Some distention, nontender EXTREMITIES : Minimal LE swelling, no LE tenderness, no other conspicuous deformities noted NEUROLOGIC : Coherent, no facial asymmetry, no other gross focality Results & Data Results & Data ([facility]) Vital Signs (Past 12 Hours) Vital Signs Pulse Pulse Resp BP BP Pulse Ox 10/09/19 20:00 66 18 131/84 96 10/09/19 18:08 50 L 20 147/81 H 98 Laboratory Results Laboratory Results WBC 11.74 K/uL (4.8-10.8) H 10/09/19 19:55 RBC 4.35 M/uL (4.2-5.4) 10/09/19 19:55 Hgb 13.0 g/dL (12.0-16.0) 10/09/19 19:55 POC Hgb 13.3 g/dl (12.0-16.0) 10/09/19 19:01 Hct 38.1 % (37-47) 10/09/19 19:55 POC Hct 39 % (37-47) 10/09/19 19:01 MCV 87.6 fL (80-100) 10/09/19 19:55 MCH 29.9 pg (25-34) 10/09/19 19:55 MCHC 34.1 g/dL (32-36) 10/09/19 19:55 RDW Std Deviation 43.8 fL (36.4-46.3) 10/09/19 19:55 RDW Coeff of [place]yl[place] 13.6 % (11.5-14.5) 10/09/19 19:55 Plt Count 222 K/uL (130-400) 10/09/19 19:55 MPV 11.4 fL (7.4-10.4) H 10/09/19 19:55 Immature Gran % (Auto) 0.4 % 10/09/19 19:55 Neut % (Auto) 87.6 % 10/09/19 19:55 Lymph % (Auto) 7.7 % 10/09/19 19:55 [place] % (Auto) 3.4 % 10/09/19 19:55 Eos % (Auto) 0.7 % 10/09/19 19:55 Baso % (Auto) 0.2 % 10/09/19 19:55 Immature Gran # (Auto) 0.05 K/uL (0.00-0.02) H 10/09/19 19:55 Neut # (Auto) 10.29 K/uL (1.4-6.5) H 10/09/19 19:55 Lymph # (Auto) 0.90 K/uL (1.2-3.4) L 10/09/19 19:55 [place] # (Auto) 0.40 K/uL (0.11-0.59) 10/09/19 19:55 Eos # (Auto) 0.08 K/uL (0-0.5) 10/09/19 19:55 Baso # (Auto) 0.02 K/uL (0-0.2) 10/09/19 19:55 POC Sodium 138 mmol/L (135-144) 10/09/19 19:01 Sodium 137 mmol/L (136-145) 10/09/19 19:55 POC Potassium 3.1 mmol/L (3.3-5.0) L 10/09/19 19:01 Potassium mmol/L (3.5-5.1) 10/09/19 19:55 POC Chloride 105 mmol/L (101-112) 10/09/19 19:01 Chloride 104 mmol/L (98-107) 10/09/19 19:55 Carbon Dioxide 25 mmol/L (21-32) 10/09/19 19:55 POC Total CO2 23 mmol/L (24-31) L 10/09/19 19:01 Anion Gap 8.0 (3-11) 10/09/19 19:55 POC Anion Gap 14.0 mmol/L (16-25) L 10/09/19 19:01 POC BUN 28 mg/dl (7-18) H 10/09/19 19:01 BUN 24 mg/dl (7-18) H 10/09/19 19:55 Creatinine 0.99 mg/dl (0.6-1.2) 10/09/19 19:55 POC Creatinine 0.9 mg/dl (0.6-1.3) 10/09/19 19:01 Est Cr Clr Drug Dosing 64.8 ml/min 10/09/19 19:55 Est GFR ( Amer) 66.9 10/09/19 19:55 Est GFR (Non-Af Amer) 57.7 10/09/19 19:55 BUN/Creatinine Ratio 24.4 (10-20) H 06/07/20 19:55 Glucose 146 mg/dl (70-99) H 10/09/19 19:55 POC Glucose (other) 149 mg/dl (70-99) H 10/09/19 19:01 Calcium 9.8 mg/dl (8.5-10.1) 10/09/19 19:55 POC Ioniz Calcium Katie 1.20 mmol/l (1.12-1.32) 10/09/19 19:01 Magnesium Cancelled 10/09/19 19:55 Total Bilirubin 0.6 mg/dl (0.2-1) 10/09/19 19:55 AST U/L (15-37) 10/09/19 19:55 ALT 28 U/L (12-78) 10/09/19 19:55 Alkaline Phosphatase 66 U/L (45-117) 10/09/19 19:55 Total Protein 7.6 gm/dl (6.4-8.2) 10/09/19 19:55 Albumin 3.6 gm/dl (3.4-5.0) 10/09/19 19:55 Globulin 4.0 gm/dl (2.5-4.0) 10/09/19 19:55 Albumin/Globulin Ratio 0.9 (0.9-2) 10/09/19 19:[address] head: No acute intracranial abnormality. Normal brain. Probable left maxillary sinus fracture. CT face: 1. Fracture lateral and medial wall left maxillary sinus. 2.. Fracture left inferior orbital floor with inferior displacement of 2 mm. No evidence for muscular trapment. 3. Edematous changes the nasal turbinates bilaterally. CT cervical spine: No fractures within the cervical spine. Moderate degenerative change. CT thoracic spine: 1. Slight wedge deformity superior endplate T12 uncertain age. 2. Generalized degenerative disc change. 3. Osteopenia. CT lumbar spine: No fractures within the lumbar spine. CT chest: 1. Nondisplaced cortical fractures right fourth through seventh ribs 2. Small right pleural effusion. 3. Study is otherwise negative. CT abdomen pelvis: 1. Slight wedge deformity superior endplate T12. This appears to be acute. 2. Small right pleural effusion. 3. Several right rib fractures which have been described previously. 4. No additional acute abnormality of the abdomen or pelvis. EKG as per my interpretation: Rate 65, NSR, normal axis, T wave abnormalities inferior leads
[2019-10-09] MEDS ORDERED: IBUPROFEN 200 MG TAB PO PRN (21:30)
[2019-10-09] MEDS ORDERED: TRAMADOL HCL 50 MG TABLET PO PRN (21:30)
[2019-10-09] MEDS ORDERED: PROMETHAZINE HCL 12.5 MG in SODIUM CHLORIDE 0.9% 50 ML IV PRN (21:30)
[2019-10-09] MEDS ORDERED: ACETAMINOPHEN 325 MG TAB PO PRN (21:30)
[2019-10-09 21:40] LABS: Potassium 2.8 mmol/L (3.5-5.1)
[2019-10-09 21:41] LABS: Magnesium 1.9 mg/dl (1.8-2.4)
[2019-10-09] MEDS ORDERED: POTASSIUM CHLORIDE 20 MEQ TABCR PO STA (22:26)
[2019-10-09] MEDS: KETOROLAC TROMETHAMINE 15 MG/ML VIAL IV PRN (22:31)
[2019-10-09] MEDS ORDERED: MAGNESIUM SULFATE / D5W 1 GM/100 ML BAG IV ONE (22:45)
[2019-10-09] MEDS ORDERED: POTASSIUM CHLORIDE 40 MEQ in SODIUM CHLORIDE 0.9% 1000ML 1,000 ML IV ONE (22:45)
[2019-10-10] MEDS ORDERED: POTASSIUM CHLORIDE 20 MEQ TABCR PO ONE ×2 (02:00→16:00)
[2019-10-10] MEDS: KETOROLAC TROMETHAMINE 15 MG/ML VIAL IV PRN ×2 (03:59→15:00)
[2019-10-10 06:59] LABS: Estimated Average Glucose 105 mg/dl; Hemoglobin A1C 5.3 % (4.5-5.6)
[2019-10-10 07:35] LABS: Basophils # (auto) 0.01 K/uL (0-0.2); Basophils % (auto) 0.1 %; Hematocrit (blood only) 34.2 % (37-47); Hemoglobin 11.4 g/dL (12.0-16.0); Immature Granulocytes # (auto) 0.01 K/uL (0.00-0.02); Immature Granulocytes % (auto) 0.1 %; Lymphocytes # (auto) 0.96 K/uL (1.2-3.4); Lymphocytes % (auto) 12.8 %; Mean Corpuscular Hemoglobin 29.7 pg (25-34); Mean Corpuscular Hgb Conc 33.3 g/dL (32-36); Mean Corpuscular Volume 89.1 fL (80-100); Mean Platelet Volume 11.2 fL (7.4-10.4); Monocytes # (auto) 0.35 K/uL (0.11-0.59); Monocytes % (auto) 4.7 %; Neutrophils # (auto) 6.17 K/uL (1.4-6.5); Neutrophils % (auto) 82.3 %; Platelet Count 223 K/uL (130-400); RDW Coefficient of Variation 13.9 % (11.5-14.5); RDW Standard Deviation 45.3 fL (36.4-46.3); Red Blood Count 3.84 M/uL (4.2-5.4)
[2019-10-10] MEDS ORDERED: MULTIVITAMIN TAB PO SCH (09:00)
[2019-10-10] MEDS ORDERED: CHOLECALCIFEROL 1,000 UNITS 25 MCG TAB PO SCH (09:00)
[2019-10-10] MEDS ORDERED: ATENOLOL 50 MG TABLET PO SCH (09:00)
[2019-10-10] MEDS ORDERED: CALCIUM 600MG + VIT D 400 IU TAB PO SCH (09:00)
[2019-10-10] MEDS ORDERED: MELOXICAM 7.5 MG TAB PO SCH (09:00)
[2019-10-10] MEDS ORDERED: PANTOprazole 40 MG TAB PO SCH (09:00)
[2019-10-10 09:45] LABS: BUN Creatinine Ratio 29.9 (10-20); Calcium 9.2 mg/dl (8.5-10.1); Creatinine Clr Calc Pharmacy 66.1 ml/min; Est GFR (African American) 79.3; Est GFR (Non-African American) 68.4; Potassium 3.2 mmol/L (3.5-5.1)
--- NOTE | 2019-10-10 11:39 | Consultation ---
Date of Consultation October 10, 2019 Assessment & Plan (1) Closed T12 fracture: Options and treatment plans have been reviewed with the patient. She agrees with conservative treatment. Her body habitus is not really amenable to bracing. Pain is well controlled therefore would not recommend aggressive surgical intervention. We will continue with pain control, nonoperative treatment, no bracing, no lifting over 5 pounds, ambulate ad sachin. We will see her in the office in 2 weeks for updated x-rays and assess her progress. [phone] thank you Supervising Physician Co-Signing Physician Notes Dr. Hussein Rinaldi History of Present Illness This is a very pleasant 69-year-old female who yesterday was rototilling her garden when it hit some solid dirt and resulted in a sudden jerk. Patient lost her balance and fell. She was able to get up on her own. She currently rates her thoracolumbar pain to be a 5 out of 10. It does radiate along bilateral rib cages. Patient is very active. She cares for [id number]-old grandchild. She resides with her . She denies radicular leg pain. Normally ambulates independently. Attending Physician: Zara Bond MD Allergies Allergy/AdvReac Type Severity Reaction Status Date / Time atropine Allergy Unknown RASH Verified 10/09/19 19:00 hyoscyamine Allergy Unknown RASH Verified 10/09/19 19:00 phenobarbital Allergy Unknown RASH Verified 10/09/19 19:00 scopolamine Allergy Unknown RASH Verified 10/09/19 19:00 latex Allergy red sore Verified 10/09/19 19:00 skin Home Medications Home Medications Medication Instructions Recorded Confirmed Type atenolol 50 mg tablet 50 mg PO DAILY 01/28/19 10/09/19 History hydrochlorothiazide 25 mg tablet 25 mg PO DAILY 01/28/19 10/09/19 History omeprazole 40 mg capsule,delayed 40 mg PO BID 01/28/19 10/09/19 History release calcium carbonate-vitamin D3 1 tab PO BID 10/09/19 10/09/19 History [Caltrate 600 plus D] cholecalciferol (vitamin D3) 50 mcg PO DAILY 10/09/19 10/09/19 History [Vitamin D3] garlic 1,000 mg PO DAILY 10/09/19 10/09/19 History meloxicam [Mobic] 15 mg PO DAILY 10/09/19 10/09/19 History multivitamin 1 tab PO DAILY 10/09/19 10/09/19 History Patient History Medical History Acid reflux disease with ulcer (Chronic) HTN, goal to be determined (Chronic) Surgical History H/O abdominoplasty (Resolved) History of bladder surgery (Resolved) History of hernia surgery (Resolved) S/P cholecystectomy (Resolved) S/P hysterectomy (Resolved) Social History Preferred Language: Nicaraguan Communication Ability: Effective Visual Impairment: Partially Limited Hearing Ability: Normal Beliefs That Will Affect Care: None marital status: Current Living Situation: Spouse current occupational status: retired Other Information That Helps Us Care for You: No Feels Safe at Home: Yes Safety Concerns: Feels Safe At This Time Smoking Status: Never smoker Hx Alcohol Use: No Hx Substance Use: No Review of Systems Review of Systems: All systems reviewed & are unremarkable except as noted in HPI & below Physical Exam Physical Exam: Patient is able to change positions from lying down to a seated position with ease. No acute distress. Alert and oriented x3. She has a laceration on the top of her head. Ecchymosis is noted over the left eye and left chin. Lower extremities are 5 5 bilateral EHL, dorsiflexion, plantarflexion, quadriceps, hamstrings. Negative logrolling bilaterally. Lumbar spine has no ecchymosis or lacerations. She is nontender to palpation and percussion throughout the thoracolumbar spine. No palpable step-offs. Constitutional: WD/WN, vitals as above Eyes: normal visual cabral by confrontation ENMT: external ear and nose normal, oropharynx normal Neck: normal visual inspection Respiratory: normal respiratory effort Cardiovascular: Vessels: dorsalis pedis pulses present Extremities: normal capillary refill Gastrointestinal (Abdomen): Inspection/Auscultation: abdomen normal to inspection Musculoskeletal: Extremities: extremities normal to inspection and strength 5/5 throughout Skin: no rashes, warm and dry Neurologic: patellar DTR's 2+ bilat, sensation intact normal touch/pain/proprioception and moves all extremities Psychiatric: A+Ox3, euthymic affect Results & Data ([facility]) Vital Signs (Past 12 Hours) Vital Signs Temp Pulse Pulse Resp BP Pulse Ox 10/10/19 11:12 36.6 C 52 L 16 117/72 95 10/10/19 07:35 36.4 C L 63 18 124/75 96 10/10/19 04:50 36.4 C L 66 18 111/73 98 10/10/19 01:49 45 L Diagnostic Findings [place], [place] [phone] CT Scan Report Patient: SHAY YING AAdmit Date: 10/09/19 MR#: [id number]: [id number] Acct ID:[id number]: Date: 1950City Zip: [place] [address] Age: 69Location: ED Sex: F Room/Bed: Att Phy:Diagnosis: LAC ON HEAD Carmina Phy: Traa Dior, DOService Date: 10/09/19 Fam Phy:Interpreting Phy: Lan Dueñas MD Admit Phy: Ordering Phy: Andre Mckinley MD cc: ~ CT thoracic spine wo con CT DOSE: HISTORY: Trauma. Pain. trauma eval for injury TECHNIQUE: Multiaxial CT images of the thoracic spine were performed and reformatted in the sagittal and coronal plane without the use of contrast. A dose lowering technique was utilized adhering to the principles of ALARA. COMPARISON: None. FINDINGS: No fractures. No subluxation. Paraspinal soft tissues are unremarkable. Slight wedge deformity T12 of uncertain age. Osteopenia. IMPRESSION: 1. Slight wedge deformity superior endplate T12 uncertain age. 2. Generalized degenerative disc change. 3. Osteopenia. ACT 112: Negative or not required by law. The above report was generated using voice recognition software. It may contain grammatical, syntax or spelling errors. Electronically signed by: Lan Dueñas M.D. 10/09/2019 7:33 PM Dictated: 10/09/191930 Transcribed: 10/09/191930 [facility] [place] [phone] CT Scan Report Patient: SHAY YING AAdmit Date: 10/09/19 MR#: [id number]: [id number] Acct ID:[id number]: Date: 1950City Zip: [place] [address] Age: 69Location: ED Sex: F Room/Bed: Att Phy:Diagnosis: LAC ON HEAD Carmina Phy: Tara Dior, DOService Date: 10/09/19 Fam Phy:Interpreting Phy: Lan Dueñas MD Admit Phy: Ordering Phy: Andre Mckinley MD cc: ~ CT lumbar spine wo con CT DOSE: HISTORY: trauma eval for injury TECHNIQUE: Multiaxial CT images of the lumbar spine were performed and reformatted in the sagittal and coronal plane without the use of contrast. A dose lowering technique was utilized adhering to the principles of ALARA. COMPARISON: None. FINDINGS: No fractures. No subluxation. Paraspinal soft tissues are unremarkable. Moderate generalized degenerative disc change. Osteopenia. IMPRESSION: No fractures within the lumbar spine. ACT 112: Negative or not required by law. The above report was generated using voice recognition software. It may contain grammatical, syntax or spelling errors. Electronically signed by: Lan Dueñas M.D. 10/09/2019 7:34 PM Dictated: 10/09/191932 Transcribed: 10/09/191932 (1) Closed T12 fracture Encounter type: initial encounter Fracture morphology: wedge compression Qualified Code(s): S22.080A - Wedge compression fracture of T11-T12 vertebra, initial encounter for closed fracture
--- NOTE | 2019-10-10 15:33 | Hospitalist Progress Note ---
Date of Service October 10, 2019 Assessment & Plan (1) Cerebral concussion: (2) Multiple fractures of ribs: (3) Closed T12 fracture: (4) Fall: (5) Orbital fracture: S/P fall CT head showed no acute intracranial abnormality Cervical spine CT showed no acute fracture CT chest showed Nondisplaced cortical fractures right fourth through seventh ribs. Thoracic CT spine showed slight wedge deformity superior endplate T12 uncertain age. CT face showed fracture lateral and medial wall left maxillary sinus. Fracture left inferior orbital floor with inferior displacement of 2 mm. Continue pain control Incentive spirometry Ortho on board and recommended conservative management Oral/maxillofacial consulted for the left orbital fracture Case discussed with Dr. Gallegos Oral maxillafacial No surgical intervention needed She was advised to avoid any nose blowing Use ocean Nasal spray 2 spray each nostril 3-4 x a day Follow up with Dr Gallegos in 2-3 weeks Neuro on board No further imaging as per neuro If her headache worsens, will need to repeat his CT head Advised pt to avoid any bright light and computer screen. No driving for at least 2 weeks No focal neuro deficit on exam Follow up with ortho Dr. alejo in 2 weeks for updated x-rays and to assess her progress. Fall precaution PT/OT eval Hyperglycemia Hba1c 5.3 Continue monitor BS Hypertension BP stable Continue atenolol Will resume HCTZ in am Hypokalemia Related to diuretic HCTZ Potassium on admission 2.8 Received K supplement Potassium today 3.2 K replaced Monitor BMP DVT px on SCDs due to traumatic scalp wound CODE STATUS FULL CODE Disposition Pt would like to go home today, will discharge home today Admission and Anticipated Discharge Date Admission Date: October 09, 2019 Subjective Pt was seen and examined. Lying in bed with no distress. Pt said that her pain is control She said that she does have some tenderness in her left periorbital area Pt would like to go home tonight since no plan for any intervention procedure with any of the specialist She walked in the hallway with the nurse Denies any chest pain, palpitation, dizziness and SOB Physical Exam Physical Exam: General- No acute distress Head- atraumatic Eyes- EOMI, periorbital ecchymoses ENT- oropharynx clear Neck- supple, no JVD Lungs- clear to auscultation Heart- regular rhythm Abdomen- normal bowel sounds, soft, nontender Extremities- no calf tenderness Neuro- alert, oriented x 3; PERRL, EOMI; no facial palsy; no dysarthria Skin- warm & dry Results & Data Results & Data ([facility]) Vital Signs (Past 12 Hours) Vital Signs Temp Pulse Resp BP Pulse Ox 10/10/19 11:12 36.6 C 52 L 16 117/72 95 10/10/19 07:35 36.4 C L 63 18 124/75 96 10/10/19 04:50 36.4 C L 66 18 111/73 98 (1) Closed T12 fracture Encounter type: initial encounter Fracture morphology: wedge compression Qualified Code(s): S22.080A - Wedge compression fracture of T11-T12 vertebra, initial encounter for closed fracture (2) Multiple fractures of ribs Encounter type: initial encounter Fracture type: closed Laterality: right Qualified Code(s): S22.41XA - Multiple fractures of ribs, right side, initial encounter for closed fracture
--- NOTE | 2019-10-10 17:24 | Surgery Consultation ---
Date of Consultation October 10, 2019 History of Present Illness Attending Physician: Zara Bond MD Patient was referred for evaluation of facial trauma to left floor of orbit and lateral sinus wall. The injury happened; Yesterday due to a syncopal event while working in her yard. CC--My face is fractured, I have some nasal congestion and had a lot of bleeding after the fall. I have some numbness to my upper right front teeth and ecchymosis of my left eye and cheek. Eye: mild eye swelling noted, no double vision, excellent ROM without double vision or pain upon eye movement. Minimal displaced orbital floor fracture with 2 mm displacement, no entrapment of eye muscles. CT scan reviewed =no treatment needed-should heal uneventfully. Nose: Septum--looks to be midline w/o deviation Mucosal tissue slightly swollen Sinus: there is a lateral wall fracture with congestion (blood) with in the left sinus as a result of the facial/sinus trauma. Reviewed the CT scan --non displaced lateral wall fx -No treatment needed Blood with dissolve over time, Fx is insignificant. CT scan--after trauma: Facial bone fractures, minimal displaced left lateral sinus wall and floor of orbit. Blood with in left sinus complete opacification. No surgical intervention needed Plan: No surgical intervention needed told Sravanthi to avoid ANY nose blowing use ocean Nasal spray 2 spray each nostril 3-4 x a day call office for follow up with Dr Gallegos in 2-3 weeks She has my contact info (card) Overall I see no function problems due to the recent facial trauma. Follow up: To call Dr Gallegos 2-3 weeks from discharge office follow up exam. Thank you for the consult, Gio Gallegos [facility] Oral Maxillofacial surgery [facility] Allergies Allergy/AdvReac Type Severity Reaction Status Date / Time atropine Allergy Unknown RASH Verified 10/09/19 19:00 hyoscyamine Allergy Unknown RASH Verified 10/09/19 19:00 phenobarbital Allergy Unknown RASH Verified 10/09/19 19:00 scopolamine Allergy Unknown RASH Verified 10/09/19 19:00 latex Allergy red sore Verified 10/09/19 19:00 skin Home Medications Home Medications Medication Instructions Recorded Confirmed Type atenolol 50 mg tablet 50 mg PO DAILY 01/28/19 10/09/19 History hydrochlorothiazide 25 mg tablet 25 mg PO DAILY 01/28/19 10/09/19 History omeprazole 40 mg capsule,delayed 40 mg PO BID 01/28/19 10/09/19 History release calcium carbonate-vitamin D3 1 tab PO BID 10/09/19 10/09/19 History [Caltrate 600 plus D] cholecalciferol (vitamin D3) 50 mcg PO DAILY 10/09/19 10/09/19 History [Vitamin D3] garlic 1,000 mg PO DAILY 10/09/19 10/09/19 History meloxicam [Mobic] 15 mg PO DAILY 10/09/19 10/09/19 History multivitamin 1 tab PO DAILY 10/09/19 10/09/19 History Patient History Medical History Acid reflux disease with ulcer (Chronic) HTN, goal to be determined (Chronic) Surgical History H/O abdominoplasty (Resolved) History of bladder surgery (Resolved) History of hernia surgery (Resolved) S/P cholecystectomy (Resolved) S/P hysterectomy (Resolved) Social History Preferred Language: [place] Communication Ability: Effective Visual Impairment: Partially Limited Hearing Ability: Normal Beliefs That Will Affect Care: None marital status: Current Living Situation: Spouse current occupational status: retired Other Information That Helps Us Care for You: No Feels Safe at Home: Yes Safety Concerns: Feels Safe At This Time Smoking Status: Never smoker Hx Alcohol Use: No Hx Substance Use: No Results & Data Vital Signs (Past 12 Hours) Vital Signs Temp Pulse Resp BP Pulse Ox 10/10/19 16:04 36.8 C 51 L 18 145/89 H 97 10/10/19 11:12 36.6 C 52 L 16 117/72 95 10/10/19 07:35 36.4 C L 63 18 124/75 96 PG Care Time/CCT Total # of Minutes Spent Total Time Spent with Patient: Total time spent is greater than 50% in coordination of care (as documented) at patient's floor/unit and/or counseling patient: Coding Level of Care Code 74035 Initial Inpt Care Lvl 3
--- NOTE | 2019-10-10 17:31 | Consultation Report ---
DATE OF CONSULTATION: 10/10/2019 REASON FOR CONSULTATION: Concussion. HISTORY OF PRESENT ILLNESS: The patient is a 69-year-old right-handed female who was in her usual state of health, yesterday was using a rototiller and the rototiller suddenly jerked. She was pulled forward. She believes she hit her face on the shield of the rototiller and then hit the ground. She may have had a brief loss of consciousness. She awakened with a headache, swollen left eye and some back pain and shortness of breath. She was brought to our Emergency Room for evaluation. She notes a mild persistent ache in the left periorbital region. The headache is unchanged compared to yesterday and is not severe. She has noted no difficulty with cognition or forming memories or disorientation. No unilateral weakness, numbness, vertigo or unsteadiness. No double vision. She has no prior history of head injury. Diagnostic imaging is notable for a CT of the head showing no acute intracranial abnormality, normal brain, probable left maxillary sinus fracture, fluid in the left maxillary sinus. Facial CT, which I have reviewed, shows a fracture in the lateral and medial wall of the left maxillary sinus. Fracture of the left inferior orbital wall with inferior displacement of 2 mm. No evidence of muscular entrapment. Edematous changes in the nasal turbinates bilaterally. Thoracic spine CT shows a slight wedge deformity of the superior endplate of T12 of uncertain age and generalized degenerative changes. The patient's white count on admission was 11.7, H and H 13/38, platelet count 222. Sodium unremarkable. Potassium 3.1, BUN and creatinine 28/0.99, glucose 146. PAST MEDICAL HISTORY: Notable for osteoporosis, hypertension, reflux. PAST SURGICAL HISTORY: Abdominoplasty, bladder surgery, hernia surgery, cholecystectomy, hysterectomy. SOCIAL HISTORY: Nonsmoker. Does not drink alcohol. 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 ALLERGIES: ATROPINE, HYOSCYAMINE, PHENOBARBITAL, SCOPOLAMINE, LATEX. HOME MEDICATIONS: Atenolol, HCTZ, omeprazole, calcium with vitamin D3, garlic, meloxicam, and multiple vitamin. The patient receives an intravenous treatment for osteoporosis. PHYSICAL EXAMINATION: Blood pressure 145/89, pulse 51, temperature 36.8, O2 sat 97%. The patient is awake and alert and oriented x3. Memory is 3/3 at 3 minutes. The patient has a sutured laceration at the right vertex. There is periorbital swelling with some associated ptosis on the left. No CSF rhinorrhea and no otorrhea noted. There is no Mack sign. The patient's neck is supple. There is mild diffuse tenderness in the region of the left orbit. Pupils are equal, round, and reactive to light. There is no afferent pupillary defect. The optic nerves were grossly normal. There are normal cabral, normal motility, normal facial symmetry with the exception of some mild swelling of the left face, which causes some minor asymmetry. Brow elevation was symmetric. Motor: Normal bulk and tone. Strength is 5/5, no drift. Normal rapid alternating movements. Symmetric reflexes. Downgoing toes. Hdjbic-xy-foyh and apbc-dl-qacw are normal. There is no dysdiadochokinesia. Sensation is intact to light touch bilaterally. Gait is unremarkable. IMPRESSION AND PLAN: Mild concussive symptoms with brief loss of consciousness and ongoing headache. The headache of which may be related to orbital fracture. The patient looks well and has very little other symptom. I would monitor her clinically. If her headache worsens, I would have a low threshold to repeat a CT of the head. When she returns home, I would avoid computer screen. It will be some time before she will be able to do house cleaning and babysitting for many reasons including the thoracic compression fracture. I would make sure before returning to those activities that she is asymptomatic in terms of headache. If any cognitive issues arise and/or new, recommend repeat CT. I would be glad to see her back in the office thereafter. Oral maxillofacial surgery or ENT should see the patient. Fortunately, I do not see any disorder of extraocular motility. We will sign off.
[2019-10-10] MEDS ORDERED: PERCOCET 5/325MG HOMEPACK PO ONE (19:09)
--- NOTE | 2019-10-10 22:21 | Electrocardiogram Report ---
Test Reason : Blood Pressure : / mmHG Vent. Rate : 066 BPM Atrial Rate : 066 BPM P-R Int : 220 ms QRS Dur : 092 ms QT Int : 462 ms P-R-T Axes : 067 016 -04 degrees QTc Int : 484 ms Sinus rhythm with 1st degree A-V block Otherwise normal ECG When compared with ECG of 13-JUL-2012 11:51, MS interval has increased QT has lengthened Confirmed by Thien Avilez ([id number]) on 10/10/2019 10:21:34 PM Referred By: REFERRED SELF Confirmed By:Thien Avilez
--- NOTE | 2019-10-12 13:26 | Discharge Summary ---
Date of Service October 10, 2019 Admission HPI Per Admitting Provider History obtained from patient, family, and records. Medical history significant for hypertension, GERD, chronic back pain, osteoporosis. Patient was using her lawnmower today when the mower hit hard ground jerked forward subsequently putting patient down to the ground culminating in head trauma. As per patient daughter, she rushed to mother after fall. Patient unconscious for me, few moments. Patient woke up with achy headache, swollen left eye and achy pleuritic back pain with some shortness of breath. No unusual visual blurriness. Patient brought to the ER for evaluation. Scalp wound stapled at the ER. 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, lives with Admission Exam Per Admitting Provider GENERAL: Slightly uncomfortable, pleasant, obese, no respiratory distress SKIN: Normal color, warm HEENT: [place] on right parietal area, bespectacled, periorbital ecchymosis, no ptosis, no EOM entrapment, dry buccal mucosa NECK : Supple, short neck, no tenderness CHEST : CTA, tenderness right chest wall HEART : RRR, no obvious murmurs BACK : midback tenderness, negative straight leg raise test ABDOMEN: Some distention, nontender EXTREMITIES : Minimal LE swelling, no LE tenderness, no other conspicuous deformities noted NEUROLOGIC : Coherent, no facial asymmetry, no other gross focality Principal Diagnosis (1) Cerebral concussion: (2) Multiple fractures of ribs: (3) Closed T12 fracture: (4) Fall: (5) Orbital fracture: (6) Hyperglycemia (7) Hypertension (8) Hypokalemia Discharge Exam General- No acute distress Head- atraumatic Eyes- EOMI, periorbital ecchymoses ENT- oropharynx clear Neck- supple, no JVD Lungs- clear to auscultation Heart- regular rhythm Abdomen- normal bowel sounds, soft, nontender Extremities- no calf tenderness Neuro- alert, oriented x 3; PERRL, EOMI; no facial palsy; no dysarthria Skin- warm & dry Discharge Data Allergies Allergy/AdvReac Type Severity Reaction Status Date / Time atropine Allergy Unknown RASH Verified 10/09/19 19:00 hyoscyamine Allergy Unknown RASH Verified 10/09/19 19:00 phenobarbital Allergy Unknown RASH Verified 10/09/19 19:00 scopolamine Allergy Unknown RASH Verified 10/09/19 19:00 latex Allergy red sore Verified 10/09/19 19:00 skin Consultations 10/09/19 21:02 ED Decision to Admit Stat 10/09/19 21:30 Consult Case Management - Discharge Planning Routine Consult Neurology Routine 10/10/19 02:43 Consult Orthopedic Surgery Routine 10/10/19 12:08 Consult Oromaxillofacial Surgery Routine Ordered Studies 10/09/19 18:42 CT abd pelvis IV con only Stat CT cervical spine wo con Stat CT chest w con Stat CT facial bones wo con Stat CT head/brain wo con Stat CT lumbar spine wo con Stat CT thoracic spine wo con Stat CT abd pelvis IV con only CT DOSE: HISTORY: trauma eval for injury TECHNIQUE: Multiaxial CT images of the abdomen and pelvis were performed following the use of intravenous contrast. A dose lowering technique was utilized adhering to the principles of ALARA. COMPARISON STUDY: None. FINDINGS: Fracture of several right ribs in the midaxillary line as previously described. The liver spleen and pancreas are unremarkable. Kidneys enhance uniformly. There are several small parapelvic cysts bilaterally. Nonobstructive bowel pattern. Bladder is midline. There is no free fluid within the abdomen or pelvic cul-de-sac regions. Minimal right inguinal infiltrative change possibly related to prior surgical or other intervention. Slight wedge deformity superior endplate T12. IMPRESSION: 1. Slight wedge deformity superior endplate T12. This appears to be acute. 2. Small right pleural effusion. 3. Several right rib fractures which have been described previously. 4. No additional acute abnormality of the abdomen or pelvis. ACT 112: Negative or not required by law. The above report was generated using voice recognition software. It may contain grammatical, syntax or spelling errors. Electronically signed by: Lan Dueñas M.D. 10/09/2019 7:41 PM Dictated: 10/09/191937 Transcribed: 10/09/191937 CT cervical spine wo con CT DOSE: 3042.51 mGy.cm HISTORY: Trauma. Pain. trauma eval for injury TECHNIQUE: Multiaxial CT images of the cervical spine were performed and reformatted in the sagittal and coronal plane without the use of contrast. A dose lowering technique was utilized adhering to the principles of ALARA. COMPARISON: None. FINDINGS: No fractures. No subluxation. Prevertebral soft tissues and the C1-C2 interval are intact. No pneumothorax. Moderate degenerative disc change from C4 through C7 IMPRESSION: No fractures within the cervical spine. Moderate degenerative change. ACT 112: Negative or not required by law. The above report was generated using voice recognition software. It may contain grammatical, syntax or spelling errors. Electronically signed by: Lan Dueñas M.D. 10/09/2019 7:27 PM Dictated: 10/09/191925 Transcribed: 10/09/191925 CT chest w con CT DOSE: HISTORY: Trauma trauma eval for injury TECHNIQUE: Multiaxial CT images of the chest were performed following the intravenous administration of contrast. A dose lowering technique was utilized adhering to the principles of ALARA. COMPARISON: None. FINDINGS: Nondisplaced fractures right fourth through seventh ribs. Small right effusion. Lungs otherwise appear clear. No evidence for pneumothorax. No significant mediastinal or hilar adenopathy. IMPRESSION: 1. Nondisplaced cortical fractures right fourth through seventh ribs 2. Small right pleural effusion. 3. Study is otherwise negative. ACT 112: Negative or not required by law. The above report was generated using voice recognition software. It may contain grammatical, syntax or spelling errors. Electronically signed by: Lan Dueñas M.D. 10/09/2019 7:38 PM Dictated: 10/09/191934 Transcribed: 10/09/191934 CT facial bones wo con CT DOSE: HISTORY: Trauma. Pain. trauma eval for injury TECHNIQUE: Multiaxial CT images of the maxillofacial region were performed and reformatted in the coronal plane without the use of contrast. A dose lowering technique was utilized adhering to the principles of ALARA. COMPARISON: None. FINDINGS: The right orbital margins intact. There is a fracture of the base of the left orbital margin. Estimated anterior displacement of 2 mm. There is no evidence for muscular entrapment. There is a fracture lateral wall left maxillary sinus, as well as a nondisplaced hairline fracture medial wall left maxillary sinus. There is considerable hypertrophic and/or edematous changes the nasal turbinates bilaterally. All remaining sinuses are grossly clear. IMPRESSION: 1. Fracture lateral and medial wall left maxillary sinus. 2.. Fracture left inferior orbital floor with inferior displacement of 2 mm. No evidence for muscular trapment. 3. Edematous changes the nasal turbinates bilaterally. ACT 112: Negative or not required by law. The above report was generated using voice recognition software. It may contain grammatical, syntax or spelling errors. Electronically signed by: Lan Dueñas M.D. 10/09/2019 7:31 PM Dictated: 10/09/191927 Transcribed: 10/09/191927 CT head/brain wo con CT DOSE: HISTORY: Trauma trauma eval for injury TECHNIQUE: Multiaxial CT images of the head were performed without the use of intravenous contrast. A dose lowering technique was utilized adhering to the principles of ALARA. Comparison: None. Findings: Fracture posterior left maxillary sinus. Hypertrophic and edematous changes the nasal turbinates. The calvarium and skull base are intact. The ventricles and sulci are within normal limits. There is no mass, hematoma, midline shift, or acute infarct. Impression: No acute intracranial abnormality. Normal brain. Probable left maxillary sinus fracture. ACT 112: Negative or not required by law. The above report was generated using voice recognition software. It may contain grammatical, syntax or spelling errors. Electronically signed by: Lan Dueñas M.D. 10/09/2019 7:26 PM Dictated: 10/09/191924 Transcribed: 10/09/191924 CT lumbar spine wo con CT DOSE: HISTORY: trauma eval for injury TECHNIQUE: Multiaxial CT images of the lumbar spine were performed and reformatted in the sagittal and coronal plane without the use of contrast. A dose lowering technique was utilized adhering to the principles of ALARA. COMPARISON: None. FINDINGS: No fractures. No subluxation. Paraspinal soft tissues are unremarkable. Moderate generalized degenerative disc change. Osteopenia. IMPRESSION: No fractures within the lumbar spine. ACT 112: Negative or not required by law. The above report was generated using voice recognition software. It may contain grammatical, syntax or spelling errors. Electronically signed by: Lan Dueñas M.D. 10/09/2019 7:34 PM Dictated: 10/09/191932 Transcribed: 10/09/191932 CT thoracic spine wo con CT DOSE: HISTORY: Trauma. Pain. trauma eval for injury TECHNIQUE: Multiaxial CT images of the thoracic spine were performed and reformatted in the sagittal and coronal plane without the use of contrast. A dose lowering technique was utilized adhering to the principles of ALARA. COMPARISON: None. FINDINGS: No fractures. No subluxation. Paraspinal soft tissues are unremarkable. Slight wedge deformity T12 of uncertain age. Osteopenia. IMPRESSION: 1. Slight wedge deformity superior endplate T12 uncertain age. 2. Generalized degenerative disc change. 3. Osteopenia. ACT 112: Negative or not required by law. The above report was generated using voice recognition software. It may contain grammatical, syntax or spelling errors. Electronically signed by: Lan Dueñas M.D. 10/09/2019 7:33 PM Dictated: 10/09/191930 Transcribed: 10/09/191930 Hospital Course (1) Cerebral concussion: (2) Multiple fractures of ribs: (3) Closed T12 fracture: (4) Fall: (5) Orbital fracture: S/P fall CT head showed no acute intracranial abnormality Cervical spine CT showed no acute fracture CT chest showed Nondisplaced cortical fractures right fourth through seventh ribs. Thoracic CT spine showed slight wedge deformity superior endplate T12 uncertain age. CT face showed fracture lateral and medial wall left maxillary sinus. Fracture left inferior orbital floor with inferior displacement of 2 mm. Continue pain control Incentive spirometry Ortho on board and recommended conservative management Oral/maxillofacial consulted for the left orbital fracture Case discussed with Dr. Gallegos Oral maxillafacial No surgical intervention needed She was advised to avoid any nose blowing Use ocean Nasal spray 2 spray each nostril 3-4 x a day Follow up with Dr Gallegos in 2-3 weeks Neuro on board No further imaging as per neuro If her headache worsens, will need to repeat his CT head Advised pt to avoid any bright light and computer screen. No driving for at least 2 weeks No focal neuro deficit on exam Follow up with ortho Dr. rinaldi in 2 weeks for updated x-rays and to assess her progress. Fall precaution PT/OT eval Hyperglycemia Hba1c 5.3 Continue monitor BS Hypertension BP stable Continue atenolol Will resume HCTZ in am Hypokalemia Related to diuretic HCTZ Potassium on admission 2.8 Received K supplement Potassium today 3.2 K replaced Monitor BMP DVT px on SCDs due to traumatic scalp wound CODE STATUS FULL CODE Disposition Pt would like to go home today, will discharge home today Total Time Total Time Spent Total Time Spent (In Minutes): 40 minutes Total Time Includes: Examination of the Patient, Discharge Planning, Medication Reconciliation, Communication With Other Providers and Other Discharge Plan Discharge Items Patient Disposition: Home - Self-Care Reason For Visit: CONCUSSION Discharge Diagnosis: (1) Cerebral concussion: (2) Multiple fractures of ribs: (3) Closed T12 fracture: (4) Fall: (5) Orbital fracture: (6) Hyperglycemia (7) Hypertension (8) Hypokalemia Activity: As commented below Activity Comment: increase gradually as tolerated Lifting: No more than 5 pounds Non-emergency contact: Primary Care Provider and Specialist Call non-emergency contact if: you have any medication questions, your symptoms worsen and your pain is not controlled Follow-up/Referrals: Tara Dior, [Primary Care Provider] - Diet: Heart Healthy Addtl Attending Provider Instructions: Follow up with your primary care provider in 1 week Follow up with [facility] Dr. Rinaldi in 2 weeks (please call [phone] to schedule for the appointment) Follow up with oral/maxillofacial in 2 to 3 weeks (please call to schedule for the appointment) Follow up with neurology if your headache worsening No driving for at least 2 weeks or until clear by your physician Avoid any nose blowing Avoid any bright light or computer screen. If headache worsening or develop any vision changes, please seek urgent medical attention No lifting more than 5 pounds weight Hold the next dose of the Percocet if you become drowsy and lethargy No driving or operate any machine while on Percocet Check BMP in 1 week to monitor your electrolytes (due to low potassium level) Pending Studies at Discharge: No Stand-Alone Forms: My Nitronex, Smoking Cessation Medications and DC Order Prescriptions: New lidocaine 5 % Adhesive Patch,Medicated 1 patch transdermal DAILY Qty: 10 RF: 0 potassium chloride 20 mEq tablet,ER particles/crystals 20 meq PO DAILY Qty: 30 RF: 0 oxycodone-acetaminophen [Percocet] 5-325 mg tablet 0.5 tab PO Q8H PRN (Reason: pain) Qty: 10 RF: 0 sodium chloride [[place] Nasal] 0.65 % aerosol,spray 2 sprays INTNAS TID Qty: 15 RF: 0 Continued atenolol 50 mg tablet 50 mg PO DAILY RF: 0 hydrochlorothiazide 25 mg tablet 25 mg PO DAILY RF: 0 omeprazole 40 mg capsule,delayed release(DR/EC) 40 mg PO BID RF: 0 multivitamin Tablet 1 tab PO DAILY RF: 0 garlic Tablet 1,000 mg PO DAILY RF: 0 cholecalciferol (vitamin D3) [Vitamin D3] 50 mcg (2,000 unit) Tablet 50 mcg PO DAILY RF: 0 Caltrate 600 plus D 600 mg (1,500 mg)-800 unit Tablet,Chewable 1 tab PO BID RF: 0 meloxicam [Mobic] 15 mg tablet 15 mg PO DAILY RF: 0 Discharge Orders: Discharge Order (Routine); Ordered 10/10/19 Ordered By: Zara Madrigal/Other Patient Handouts: Fx Facial, Falls Preventing, ED Rib Fx Admission Data Admit Date/Time: 10/09/19 21:29 Attending Provider: Zara Bond Admit Provider: Sheng Bojorquez Primary Care Provider: Tara Dior Other Providers: Sheng Bojorquez ; Paula Pruett ; Ector Singh ; Paula Vaca ; Kit Dejesus ; Hussein Rinaldi ; Gio Gallegos Other Interventions: Discharge Summary Assessment (RN) Last Done: 10/10/19 19:18 DC Date/Time DO NOT enter until pt leaves facility: 10/10/19 19:50
== END 2019-10-10 19:50 | disposition home or self-care (01) ==
LOC: 2W 18:07 → ED 18:07 → 2W 22:11

== ENCOUNTER 2021-09-24 08:12 | Observation (INO) ==
--- NOTE | 2021-08-30 08:39 | PAT Medication Instructions ---
Medication Instructions Date of Service August 30, 2021 Home Medications atenolol 50 mg tablet 50 mg PO QAM hydrochlorothiazide 25 mg tablet 25 mg PO QAM omeprazole 40 mg capsule,delayed release 40 mg PO BID calcium carbonate 600 mg-vitamin D3 20 mcg (800 unit) chewable tablet (Caltrate 600 plus D) 1 tab PO BID garlic 2,000 mg PO QAM multivitamin 1 tab PO QAM cyclobenzaprine 5 mg tablet 5 mg PO UD PRN polyethylene glycol 3350 17 gram oral powder packet (Miralax) 17 g PO UD PRN sucralfate 1 gram tablet (Carafate) 1 g PO UD PRN duloxetine 60 mg capsule,delayed release (Cymbalta) 60 mg PO QAM lidocaine 5 % topical patch 1 patch TRANSDERMAL UD PRN Continue as directed lidocaine 5 % topical patch 1 patch TRANSDERMAL UD PRN (avoid placement near surgical site prior to surgery) STOP taking 2 weeks before surgery (or as soon as possible if surgery is within 2 weeks) garlic 2,000 mg PO QAM DO NOT take the morning of surgery hydrochlorothiazide 25 mg tablet 25 mg PO QAM calcium carbonate 600 mg-vitamin D3 20 mcg (800 unit) chewable tablet (Caltrate 600 plus D) 1 tab PO BID multivitamin 1 tab PO QAM cyclobenzaprine 5 mg tablet 5 mg PO UD PRN polyethylene glycol 3350 17 gram oral powder packet (Miralax) 17 g PO UD PRN sucralfate 1 gram tablet (Carafate) 1 g PO UD PRN Take morning of surgery With a small sip of water, OTHERWISE NOTHING TO EAT OR DRINK AFTER MIDNIGHT: atenolol 50 mg tablet 50 mg PO QAM omeprazole 40 mg capsule,delayed release 40 mg PO BID duloxetine 60 mg capsule,delayed release (Cymbalta) 60 mg PO QAM Take evening before surgery omeprazole 40 mg capsule,delayed release 40 mg PO BID calcium carbonate 600 mg-vitamin D3 20 mcg (800 unit) chewable tablet (Caltrate 600 plus D) 1 tab PO BID cyclobenzaprine 5 mg tablet 5 mg PO UD PRN (if needed) polyethylene glycol 3350 17 gram oral powder packet (Miralax) 17 g PO UD PRN (if needed) sucralfate 1 gram tablet (Carafate) 1 g PO UD PRN (if needed) Other Notes If you have any questions please call us at [phone] or [phone] or [phone] or [phone]
--- NOTE | 2021-09-12 14:28 | Anesthesiology Consultation ---
Date of Service September 12, 2021 Assessment & Plan (1) Encounter for pre-operative examination: COVID screening: Per assessment on 09/12: No known COVID-19 positive contacts or current COVID-19 related symptoms. Travel screen negative. Surgeon arranging preop COVID testing. Awaiting results. Chart Review Chart Review: Acceptable Risk for Surgery and Patient seen in Pre Admission Testing Teaching & Discussion Pre-Anesthesia Teaching/Discussion Notes: Instructed NPO after midnight before surgery,except medications with 15 cc of water. Medication instructions provided according to the PAT guidelines. History Surgery Operation Date: 09/24/21 08:50 Proposed Procedures p Right Total Knee Arthroplasty - Farhan Cisse MD Height/Weight Height: 5 ft 1 in Weight: 105.7 kg Allergies Allergy/AdvReac Type Severity Reaction Status Date / Time atropine Allergy Unknown Rash Verified 08/30/21 08:39 hyoscyamine Allergy Unknown Rash Verified 08/30/21 08:39 latex Allergy Unknown Skin Verified 08/30/21 08:39 soreness phenobarbital Allergy Unknown Rash Verified 08/30/21 08:39 scopolamine Allergy Unknown "Goofy", Verified 08/30/21 08:39 mouth dryness Medications Home Medications Medication Instructions Recorded Confirmed Last Taken atenolol 50 mg tablet 50 mg PO QAM 01/28/19 08/29/21 Unknown hydrochlorothiazide 25 mg tablet 25 mg PO QAM 01/28/19 08/29/21 Unknown omeprazole 40 mg capsule,delayed 40 mg PO BID 01/28/19 08/29/21 Unknown release calcium carbonate 600 mg-vitamin 1 tab PO BID 10/09/19 08/29/21 Unknown D3 20 mcg (800 unit) chewable tablet (Caltrate 600 plus D) garlic 2,000 mg PO QAM 10/09/19 08/29/21 Unknown multivitamin 1 tab PO QAM 10/09/19 08/29/21 Unknown cyclobenzaprine 5 mg tablet 5 mg PO UD PRN 05/15/20 08/29/21 Unknown polyethylene glycol 3350 17 gram 17 g PO UD PRN 05/15/20 08/29/21 Unknown oral powder packet (Miralax) sucralfate 1 gram tablet (Carafate) 1 g PO UD PRN 05/15/20 08/29/21 Unknown duloxetine 60 mg capsule,delayed 60 mg PO QAM 08/29/21 08/29/21 Unknown release (Cymbalta) lidocaine 5 % topical patch 1 patch TRANSDERMAL UD PRN 08/29/21 08/29/21 Unknown Past Medical History Medical History Acid reflux CAD (coronary artery disease) Widely patent coronary anatomy with minor CAD per 05/2020 cardiac cath Hiatal hernia History of COVID-19 03/2021 HTN (hypertension) Joint pain Reason for cymbalta per pt Morbid obesity Motion sickness Right knee DJD TMJ (temporomandibular joint disorder) Right side, no locking Exercise / Class Metabolic Activity III < 4 Walking/Shop/Light housework (No CP or SOB with daily activities) Past Family History Family History Father Family history of blood clots Family history of diabetes mellitus Mother Family history of diabetes mellitus Past Surgical History Surgical History H/O abdominoplasty History of bladder surgery BLADDER TAC WITH COMPLETION OF HYSTERECTOMY History of cardiac cath 05/15/20 ([place]) > widely patent coronary anatomy with minor CAD History of colonoscopy History of endoscopy History of hernia surgery S/P cholecystectomy S/P hysterectomy R/T complication of childbirth/excess blood loss > partial hysterectomy Social History Smoking Status: Never smoker Do You Dip or Chew Tobacco: No Hx Alcohol Use: No Hx Substance Use: No substance use type: does not use Review of Systems Patient denies chest pain, shortness of breath, fever, chills, cough, wheezing, palpitations. Physical Exam Vital Signs VITALS BP 136/84 P 75 TEMP 98.3 SP02 97%RA RESP 16 PHYSICAL Full cervical extension range of motion. Full TMJ range of motion. TMD 4 finger breaths Mallampati Score 2 Dentition: left upper side missing Lungs: clear throughout to auscultation Cardiac: regular rate and rhythm, no murmurs noted Spine: normal Carotid arteries: negative bruit Extremities: no edema Lab Results Anesthesia Preop Results Results Anesthesia Widget: WBC 6.78 K/uL (4.8-10.8) 09/12/21 Hgb 11.6 g/dL (12.0-16.0) L 09/12/21 Hct 36.1 % (37-47) L 09/12/21 Plt 366 K/uL (130-400) 09/12/21 Na 140 mmol/L (136-145) 09/12/21 K 4.8 mmol/L (3.5-5.1) 09/12/21 Cl 106 mmol/L (98-107) 09/12/21 CO2 27 mmol/L (21-32) 09/12/21 BUN 27 mg/dl (6-23) H 09/12/21 Creat 0.86 mg/dl (0.6-1.2) 09/12/21 Glucose Level 92 mg/dl (70-99(Fasting)) 09/12/21 PT 10.6 Seconds (9.0-12.0) 09/12/21 PTT 26.7 Seconds (21.0-31.0) 09/12/21 INR 1.0 (0.9-1.1) 09/12/21 Blood Type O Positive 09/12/21 Antibody Screen NEGATIVE 09/12/21 Testing Electrocardiogram Date: 09/12/21 Normal sinus rhythm at 78 bpm. Unconfirmed report. Chest X-Ray Date: 09/12/21 Findings: + NAD
--- NOTE | 2021-09-21 19:27 | History and Physical Report ---
DATE OF ADMISSION: 09/24/2021 CHIEF COMPLAINT: Right knee pain. HISTORY OF PRESENT ILLNESS: The patient is a 71-year-old female who presents for surgical treatment of her right knee. She has a several year history of gradually increasing knee pain and discomfort. She has been through extensive conservative treatment provided by [facility] in the past . The shots helped initially, but became less effective over time. She had a very bad experience wi th viscosupplementation. She would now like to have her knee fixed. Her pain, increased with any ty pe of walking. She cannot get up and walk like she would like due to the pain. She has nighttime pa in. Increased pain going up and down steps. PAST MEDICAL HISTORY: Significant for: 1. Hypertension. 2. Elevated cholesterol. 3. Arthritis. 4. Gastroesophageal reflux disease. 5. Hiatal hernia. 6. Obesity with BMI of 44. 7. Low back pain/sciatica. PAST SURGICAL HISTORY: 1. Cholecystectomy. 2. Bladder tack. 3. Hernia. 4. Hysterectomy. ALLERGIES: . CURRENT MEDICATIONS: Include: 1. Atenolol. 2. Hydrochlorothiazide. 3. Cymbalta. 4. Prilosec. 5. Carafate. 6. Reclast. 7. Calcium. 8. Multivitamin. 9. Garlic. SOCIAL HISTORY: This is a 71-year-old female who lives in [place], [place]. She is . Two children. Rare alcohol intake. She does not smoke. FAMILY HISTORY: Significant for heart disease, diabetes, prostate cancer, liver cancer, thrombosis h istory. REVIEW OF SYSTEMS: Significant for multiple musculoskeletal joint aches and pains. No fevers. No r ashes. No shortness of breath. No history of DVT or PE. PHYSICAL EXAMINATION: GENERAL: Shows a pleasant middle-aged female looks to be in pretty good health. HEENT: Benign. NECK: Supple. No lymphadenopathy. LUNGS: Clear to auscultation. HEART: Regular rate and rhythm. ABDOMEN: Soft, nontender, nondistended. EXTREMITIES: Grossly neurovascularly intact except as follows. Examination revealed patient walks with a slight bit of a limp. She has valgus alignment to her knee , which is increased with weightbearing. Moderate soft tissue envelope. Range of motion is 0-125. There is no instability. No pain with hip motion. X-RAYS: X-rays of the right knee were reviewed. It shows advanced right knee lateral compartment DJ D. She has a complete loss of lateral joint space. Subchondral calcification and ossification. She has gapping medially. She has osteophytes in all 3 compartments. Looks to be a bit osteopenic. ASSESSMENT: A 71-year-old female with advanced right knee degenerative joint disease. She has been through extensive conservative treatment, which has become less successful over time. She would now like to have her right knee fixed. PLAN: We are going to take her to the operating room and do right total knee replacement. The risks and benefits of this procedure were explained to the patient include but not limited to DVT, PE, alli th, infection, neurological injury, vascular injury, bleeding problem, pain, limited range of motion, stiffness, incomplete relief of pain. The patient understands and desires to proceed. Informed con sent was obtained. I did explain that with a valgus knee there is slight increased risk of peroneal nerve palsy. We will do the best we can to avoid this. She will take atenolol the morning of surgery. Hold the hydrochlorothiazide. I answered many questi ons for her. She is planning to be discharged to home with home health in her 's assistance. Job ID: [id number]
[~2021-09-24 08:12] MED LIST changes: -ACET650T82 PO; +ACETAMINOPHEN 500 MG TAB PO SCH; -ATEN50TA8 PO; +BUPIVACAINE 0.5 % 5 MG/1 ML PF 10ML VIAL ONE; +FAMOTIDINE 20 MG TAB PO SCH; +GABAPENTIN 300 MG CAP PO SCH; -HYDR25TA4 PO; +LR 500ML BOLUS, THEN 15ML/HR IV SCH; +LR 60ML/HR IV SCH; +MIDAZOLAM HCL 1 MG/ML 2ML VIAL ONE; -OMEP40CA41 PO; -PEDICHW34 PO; +ROPIVACAINE 0.5% 5 MG/ML 30 ML VIAL ONE; +TRANEXAMIC ACID 1,000 MG **IV Intra-op IV SCH; +ceFAZolin 2000MG 2,000 MG/15 ML SYR IV SCH; +fentaNYL citrate 100 MCG/2 ML VIAL ONE
--- NOTE | 2021-09-24 08:53 | History & Physical Bridge Note ---
Date of Service September 24, 2021 History & Physical Bridge Note I have examined the patient, reviewed the History & Physical and in the interval since the performance of the History & Physical I have noted the following changes of clinical significance: no changes noted
[2021-09-24] MEDS ORDERED: ePHEDrine sulfate 50 MG/ML AMP IV PRN (10:21)
[2021-09-24] MEDS ORDERED: ONDANSETRON INJ 2 MG/ML 2 ML VIAL IV PRN ×2 (10:21→15:36)
[2021-09-24] MEDS ORDERED: ATROPINE SULFATE 0.1 MG/ML 10ML SYR IV PRN (10:21)
[2021-09-24] MEDS ORDERED: ROCURONIUM BROMIDE 10 MG/ML 5 ML VIAL IV ONE (12:03)
[2021-09-24] MEDS ORDERED: GLYCOPYRROLATE 0.2 MG/ML VIAL ONE (12:03)
[2021-09-24] MEDS ORDERED: NEOSTIGMINE METHYLSULFATE 1 MG/ML 10ML VIAL ONE (12:03)
[2021-09-24] MEDS ORDERED: PROPOFOL IV EMULSION 10 MG/ML 20 ML VIAL IV ONE (12:03)
[2021-09-24] MEDS ORDERED: ONDANSETRON INJ 2 MG/ML 2 ML VIAL ONE (12:03)
[2021-09-24] MEDS: BUPIVACAINE/EPINEPHRINE 0.25% 1:200,000 30 ML VIAL ONE ×2 (12:21→12:22)
[2021-09-24] MEDS: SODIUM CHLORIDE 0.9% PF 50 ML VIAL ONE ×2 (12:21→12:23)
[2021-09-24] MEDS: BUPIVACAINE LIPOSOME 1.3% 266 MG/20 ML VIAL ONE ×2 (12:21→12:22)
[2021-09-24] MEDS ORDERED: LABETALOL HCL IV 5 MG/ML 20ML IV ONE (12:36)
[2021-09-24] MEDS ORDERED: fentaNYL citrate 100 MCG/2 ML VIAL ONE (12:51)
--- NOTE | 2021-09-24 13:32 | Operative Report ---
PG Post Operative Report Pre & Post Diagnosis Operation Date: 09/24/21 10:40 Pre-Op Diagnosis: Right Knee Advanced Degenerative Joint Disease Post-Op Diagnosis: Right Knee Advanced Degenerative Joint Disease I identified the patient and participated in the time-out.: Yes Procedure Operation Date: 09/24/21 10:40 Actual Procedures p Right Total Knee Arthroplasty - Farhan Cisse MD Surgeon Farhan Cisse MD Licensed And Certified Midwife Jeffry Gupta PA-C Estimated Blood Loss 50 Findings Consistent with Post-Op Diagnosis Operative findings were advanced right knee tricompartment DJD. She had extensive disease laterally. She had a chronic ACL deficient knee. Osteophytes in all 3 compartments. Diffuse osteopenia. Fluids 500 cc Specimens Right knee sent for pathology Anesthesia Type General Regional Complications none Disposition Accompanied Patient To Recovery: No Indications Patient is a 71-year-old female said a long history of right knee pain discomfort describes gotten worse over time. She also developed progressive deformity to her knee and it became more unstable. She has been through extensive conservative treatment. She elected not to proceed with surgical management. Description of Procedure Operative implants consist of: 1 Biomet Vanguard size 65 right posterior stabilized femoral component. 2. Biomet size 71 tibial tray. 3. 10 mm posterior stabilized polyethylene plus insert. 4. 31 x 8 all probably patella. The patient was taken the operating, identified, placed on the operating table supine position protectors were properly padded. IV antibiotics tried by anesthesia team. A spinal anesthetic and abductor canal block had been attempted in the holding area. Unfortunately the spinal was unsuccessful. A general anesthetic was implemented. Yoo catheter was placed in sterile fashion. Right thigh tent was then placed in the right lower extremities and prepped and draped in usual sterile fashion. Right leg was elevated exsanguinated with use of an Esmarch in terms playset 300 mmHg. An anterior approach of the right knee was then performed to longitudinal incision centered over the patella. Sharp dissection got through subcutaneous this down the extensor mechanism. A medial parapatellar arthrotomy incision was made. Some subperiosteal dissection was carried out medially. The fat pad was resected beneath patella tendon. The lateral patellofemoral ligament was released. Patella subluxated laterally and the knee was flexed. The osteophytes taken off distal femur. The ACL was absent. PCL was released from the distal femur and the tibia subluxated anteriorly. External tibial alignment jig was then placed in the interface the tibia and adjusted 12 mm medially. Proximal tibial cut was made to remove about 3 to 4 mm of bone from the medial side. Tibia was then sized to a size 71. I really try to maximize the coverage due to her osteopenia. Attention drawn the femur. The distal femur was entered with a sharp drill. Intramedullary canal was suction. A right 5 degree valgus cutting guide was placed. Distal femoral cutting block was pinned in place. Distal femoral cut was made to take an additional 5 mm of bone off distal femur. I then brought the knee out in extension. I released the IT band and the posterior lateral capsule in order to equalize extension gap. Great care was taken to protect the peroneal nerve at all times. The knee was flexed. The femur was then sized to a size 65. The AP cutting block was pinned parallel to the epicondylar axis which was 4 degrees of external rotation. The anterior cut, anterior chamfer, posterior cut, posterior chamfer cuts were made. The box cutting guide was placed in just slight lateral box cut was made. The knee was flexed. The remnants of the medial lateral menisci were excised. The osteophyte taken off the posterior aspect of femur. I did have to release the popliteus in order to equalize the flexion gap. A trial femoral component was placed. Tibial tray was pinned in maximum external rotation and the drill and stem punch were used to create defect in proximal tibia for the tibial tray. The knee was then trialed and the 10 mm insert fit most appropriately. She still had a little bit of varus valgus laxity in extension so I elected to place a PS plus insert. Attention was then drawn the patella. Patella was cleaned of all soft tissues. Patella thickness measured 22 mm in thickness cut down to 13. Was sized to a size 31 patella. The lateral osteophyte was removed. Patella button was placed. Knee was taken through range of motion and the patella tracked nicely with no thumbs test. Attention drawn to placing permanent components. All trial components were removed. A bone plug was placed into the distal femur limit blood loss put a double batch Palacos G cement was mixed. [employer] size 65 right posterior stabilized femoral component, size 71 tibial tray, 10 mm posterior stabilized polyethylene plus insert and a 31 x 8 all probably patella was then cemented in place. The knee was brought out into full extension until cement hardened. Final cement check was then performed. The pericapsular tissues were injected with total 100 cc of combination of 20 cc of Exparel, 30 cc normal saline, 50 cc of quarter percent Marcaine with epinephrine. Patient did receive 1 g tranexamic acid. The tourniquet was then let down for final tourniquet time 51 minutes. Hemostasis assured use electrocautery. Extensor mechanism closed with combination 1 PDS suture #1 Vicryl suture in [id number] fashion. Extensor mechanism checked found to be intact the subcutaneous tissue then closed with 2 Dexon suture in a buried interrupted fashion skin was closed skin mary. Leg was then cleaned dried and sterile dressed with Xeroform, 4 x 4's, sterile cast padding, Irineo bandage were applied. Patient was then brought out of general anesthesia and transferred to the recovery room in stable condition. Patient tolerated procedure well and there were no complications. Jeffry Gupta, my physician real estate administrative assistant, was present for the entire procedure. His assistance was essential and required for appropriate patient positioning, prepping and draping, surgical exposure, performing the technical details of the operation, placement the implants, closure of the wound, and placement of the sterile bandage. I attest to the content of the Intraoperative Record and any orders documented therein. Any exceptions are noted below.
--- NOTE | 2021-09-24 13:46 | XRay Report ---
XR knee RT 1 or 2V routine CLINICAL HISTORY: Surgical Post Op. Status post total knee replacement COMPARISON STUDY: No previous studies for comparison. TECHNIQUE: 2 right knee views FINDINGS: The patient is status post total knee replacement. The prosthetic components are in anatomi c alignment with no acute abnormality seen. Air is present within the soft tissues from the procedure . Skin mary are seen anteriorly. IMPRESSION: 1. Status post total knee replacement ACT 112: Negative or not required by law. Electronically signed by: Kehinde Jefferson M.D. 09/24/2021 1:45 PM
[2021-09-24] MEDS: fentaNYL citrate 100 MCG/2 ML VIAL IV PRN ×3 (13:48→14:00)
--- NOTE | 2021-09-24 14:13 | Anesthesiology Progress Note ---
Date of Service September 24, 2021 Anesthesia Post Procedure Vital Signs Vital Signs: Temp Pulse Pulse Resp BP Pulse Ox 09/24/21 14:05 70 20 145/70 H 95 09/24/21 13:55 71 15 141/63 H 96 09/24/21 13:45 72 16 157/74 H 97 09/24/21 13:35 74 18 173/73 H 95 09/24/21 13:28 36.3 C L 75 18 183/83 H 94 09/24/21 08:40 36.6 C 97 H 20 163/59 H 97 Pain Intensity Right Knee: Pain Intensity: 3 Transfer of Care Handoff Completed per policy Notes Mental Status: alert / awake / arousable Patient Amnestic to Procedure: Yes Nausea / Vomiting: adequately controlled Pain: adequately controlled Airway Patency, RR, SpO2: stable & adequate BP & HR: stable & adequate Hydration State: stable & adequate Anesthetic Complications: no major complications apparent and Pt Satisfied with anesthetic care
[2021-09-24] MEDS ORDERED: ALUMINUM/MAGNESIUM SUSP 30 ML UDC PO PRN (15:36)
[2021-09-24] MEDS ORDERED: bisacodyL 10 MG SUPP PR PRN (15:36)
[2021-09-24] MEDS ORDERED: CYCLOBENZAPRINE HCL 5 MG TAB PO PRN (15:36)
[2021-09-24] MEDS ORDERED: METOCLOPRAMIDE HCL INJ 5 MG/ML 2 ML VIAL IV PRN (15:36)
[2021-09-24] MEDS ORDERED: SUCRALFATE 1 GM TAB PO PRN ×2 (15:36→16:06)
[2021-09-24] MEDS ORDERED: POLYETHYLENE (MIRALAX) 17 GM PACK PO PRN (15:36)
[2021-09-24] MEDS ORDERED: HYDROmorphone INJ 0.5 MG/0.5 ML SYR IV PRN (15:36)
[2021-09-24] MEDS ORDERED: NALOXONE HCL 0.4 MG/1 ML VIAL/CARP IV PRN (15:36)
[2021-09-24] MEDS ORDERED: oxyCODONE HCL IR 5 MG TAB (IMMEDIATE RELEASE) PO PRN (15:36)
[2021-09-24] MEDS ORDERED: MAGNESIUM HYDROXIDE SUSP 30 ML UDC PO PRN (15:36)
[2021-09-24] MEDS ORDERED: LIDOCAINE 5% 1 PATCH TD PRN (15:36)
[2021-09-24] MEDS: SODIUM CHLORIDE 0.9% 1000ML 1,000 ML IV SCH ×2 (15:57→22:52)
[2021-09-24] MEDS: ACETAMINOPHEN 500 MG TAB PO SCH ×2 (15:57→22:52)
[2021-09-24] MEDS: KETOROLAC TROMETHAMINE 15 MG/ML VIAL IV SCH ×2 (17:01→22:52)
[2021-09-24] MEDS: ASCORBIC ACID 500 MG TAB PO SCH (17:01)
[2021-09-24] MEDS ORDERED: TRANEXAMIC ACID / 0.7% NACL 1,000 MG/100 ML BAG IV SCH (19:30)
[2021-09-24] MEDS: CALCIUM 600MG + VIT D 400 IU TAB PO SCH (19:33)
[2021-09-24] MEDS: ceFAZolin 2000MG 2,000 MG/15 ML SYR IV SCH (19:33)
[2021-09-24] MEDS: ASPIRIN 81 MG ECTAB PO SCH (19:33)
[2021-09-24] MEDS: PANTOprazole 40 MG TAB PO SCH (19:34)
[2021-09-24] MEDS: DOCUSATE SODIUM 100 MG CAP PO SCH (19:34)
[2021-09-24] MEDS ORDERED: SENNA 8.6 MG TAB PO SCH (21:00)
[2021-09-25] MEDS: KETOROLAC TROMETHAMINE 15 MG/ML VIAL IV SCH ×2 (05:04→11:09)
[2021-09-25] MEDS: ceFAZolin 2000MG 2,000 MG/15 ML SYR IV SCH (05:04)
[2021-09-25] MEDS: ACETAMINOPHEN 500 MG TAB PO SCH ×2 (05:04→13:28)
[2021-09-25 06:50] LABS: Hematocrit (blood only) 30.8 % (37-47); Hemoglobin 10.4 g/dL (12.0-16.0); Mean Corpuscular Hemoglobin 30.7 pg (25-34); Mean Corpuscular Hgb Conc 33.8 g/dL (32-36); Mean Corpuscular Volume 90.9 fL (80-100); Mean Platelet Volume 10.8 fL (7.4-10.4); Platelet Count 212 K/uL (130-400); RDW Coefficient of Variation 13.8 % (11.5-14.5); RDW Standard Deviation 45.7 fL (36.4-46.3); Red Blood Count 3.39 M/uL (4.2-5.4); White Blood Count 6.72 K/uL (4.8-10.8)
[2021-09-25 07:12] LABS: BUN Creatinine Ratio 17.9 (10-20); Calcium 8.1 mg/dl (8.5-10.1); Creatinine Clr Calc Pharmacy 67.3 ml/min; Est GFR (African American) 80.5 ml/min; Est GFR (Non-African American) 69.4 ml/min; Potassium 3.7 mmol/L (3.5-5.1)
[2021-09-25] MEDS ORDERED: dexAMETHasone 10 MG in SYRINGE 0 ML IV SCH (08:00)
[2021-09-25] MEDS ORDERED: DULoxetine HCL 60 MG CAP PO SCH (09:00)
[2021-09-25] MEDS ORDERED: DOCUSATE SODIUM/SENNA 50/8.6MG TAB PO SCH (09:00)
[2021-09-25] MEDS ORDERED: MULTIVITAMIN TAB PO SCH (09:00)
[2021-09-25] MEDS ORDERED: NON-FORMULARY MEDICATION (Garlic Tablet) PO SCH (09:00)
[2021-09-25] MEDS ORDERED: hydroCHLOROthiazide 25 MG TAB PO SCH (09:00)
[2021-09-25] MEDS ORDERED: NON-FORMULARY MEDICATION (Multivitamin Tablet) PO SCH (09:00)
[2021-09-25] MEDS ORDERED: ATENOLOL 50 MG TABLET PO SCH (09:00)
[2021-09-25] MEDS: PANTOprazole 40 MG TAB PO SCH (09:56)
[2021-09-25] MEDS: DOCUSATE SODIUM 100 MG CAP PO SCH (09:57)
[2021-09-25] MEDS: CALCIUM 600MG + VIT D 400 IU TAB PO SCH (09:57)
[2021-09-25] MEDS: ASCORBIC ACID 500 MG TAB PO SCH (09:58)
[2021-09-25] MEDS: ASPIRIN 81 MG ECTAB PO SCH (10:50)
--- NOTE | 2021-09-25 10:58 | Progress Notes ---
DATE OF NOTE: 09/25/2021. SUBJECTIVE: A 71-year-old white female postoperative day 1 from a right knee replacement. She is do ing pretty well. Had a pretty good night. Pain is controlled. No chest pain or shortness of breath . Not feeling dizzy or lightheaded. OBJECTIVE: VITAL SIGNS: Temperature is 36.9. Vital signs are stable. GENERAL: Shows a pleasant, elderly female. Sitting up in bed and eating her breakfast. LUNGS: Clear to auscultation. HEART: Regular rate and rhythm. ABDOMEN: Soft, nontender, nondistended. EXTREMITIES: Grossly neurovascularly intact except as follows. Examination of the right lower extremity reveals the dressing to be clean, dry and intact. She can d orsiflex and plantarflex her foot appropriately. She is neurologically intact. She had brisk refill . LABORATORY DATA: Hemoglobin 10.4. Hematocrit 30.8. Electrolytes are stable. ASSESSMENT: A 71-year-old white female postop day 1 from right knee replacement, doing reasonably we ll. Pain is controlled. She is neurologically intact. PLAN: 1. DVT prophylaxis include thigh-high TEDs, SCDs, and aspirin twice a day. 2. PT/OT. She can weight bear as tolerated. Right total knee protocol. 3. Pain control, doing okay with current pain regimen. 4. Disposition: She is hoping to be discharged to home with some home health after therapy if she d oes okay in therapy. Job ID: [id number]
--- NOTE | 2021-09-28 14:26 | Discharge Summary ---
Date of Service September 28, 2021 Discharge Data Procedures Performed Operation Date: 09/24/21 10:40 Actual Procedures p Right Total Knee Arthroplasty - Farhan Cisse MD Hospital Course (1) Status post total right knee replacement: This patient is a 71 year old female admitted on 09/24/21 and underwent total knee arthroplasty. She tolerated the procedure well and there were no complications. Transferred to the PACU post op and later to the orthopedic floor for further care. She was given ancef for antibiotic prophylaxis. She was also given ESTEFANY stockings, SCDs, and aspirin for DVT prophylaxis. Hemoglobin, hematocrit, and vital signs were monitored during her hospital stay and remained stable. Did not require any blood transfusions. There were no complications during her hospital stay. By post op day #1 the patient was tolerating a regular diet, pain was reasonably controlled with oral pain medicine, and she was participating in physical therapy. On post op day #1 the patient was discharged home and set up with home health care. She was given printed discharge instructions including prescriptions for extra strength tylenol, aspirin, toradol, zofran, and oxycodon e. Continue physical therapy, weight bearing as tolerated. Continue SETEFANY stockings. Follow up approximately 2 weeks post op or sooner if there are problems or concerns. Coding Level of Care Code None Diagnoses Status post total right knee replacement Z96.651
== END 2021-09-25 15:20 | disposition home health service (06) ==
LOC: PACUINP 08:12 → ASU 08:12 → 3E 15:28

== ENCOUNTER 2024-11-15 06:29 | Observation (INO) ==
[2024-11-15 06:55] LABS: Hematocrit (blood only) 37.6 % (37.0-47.0); Hemoglobin 12.5 g/dl (12.0-16.0); Immature Granulocytes # (auto) 0.01 K/uL (0.01-0.20); Immature Granulocytes % (auto) 0.2 %; Mean Corpuscular Hemoglobin 30.3 pg (25.0-34.0); Mean Corpuscular Volume 91.0 fL (80.0-100.0); Platelet Count 240 K/uL (130-400); RDW Standard Deviation 45.5 fL (36.4-46.3); Red Blood Count 4.13 M/uL (4.20-5.40); White Blood Count 4.77 K/ul (4.8-10.8)
--- NOTE | 2024-11-15 07:00 | Emergency Department Note ---
Impression & Plan Chest pain, Hypertensive urgency ED Provider Note HISTORY OF PRESENT ILLNESS: Patient is a 74-year-old female presenting with chest and back pain. Patient reports that she was awoken from sleep at 4 AM with sharp pain between her shoulder blades that radiated into her anterior chest and up into her right side of her neck. She describes the pain as sharp and continuous. Denies ever having pain like this before. Denies any headache or changes in vision. Denies any numbness, tingling or weakness in her extremities. She states she took 2 baby aspirin this morning and her atenolol and omeprazole. She currently rates the pain an 8 out of 10. Denies any associated shortness of breath, nausea or vomiting. She denies any history of cardiac stents. Denies any history of DVT or PE. She is not on any anticoagulation. ROS: as above PHYSICAL EXAM: Constitutional: Patient appears in no acute distress. HENT: Head: Normocephalic and atraumatic. Eyes: EOMI, PERRL Mouth/Throat: Mucous membranes moist. Neck: Trachea midline. Neck supple. Cardiovascular: RRR, No murmurs, rubs or gallops. Intact distal pulses. Pulmonary/Chest: No respiratory distress. Breath sounds clear and equal bilaterally. No wheezes or rales. Abdominal: Abdomen soft, no tenderness, rebound or guarding. Musculoskeletal: No edema, tenderness or deformity noted. Skin: Warm and dry. No rash, erythema, pallor or cyanosis Psychiatric: Appropriate mood and affect for situation. Neurological: Alert and keenly responsive. CN II-XII grossly intact, moving all extremities equally and fully. MDM: - Vitals signs showed hypertension. - History obtained via patient. History as above. - Chronic conditions affecting care: HTN; CAD - Differential diagnoses include, but are not limited to: Acute coronary syndrome; pulmonary embolism; dissection; tension pneumothorax; esophageal rupture; pneumonia - Order placed for continuous cardiac monitoring. At this time, monitor showed rate of 65bpm with normal sinus rhythm, per my interpretation. - External medical records reviewed. Discharge summary dated 09/28/2021 was reviewed. Patient was admitted at that time for a total right knee replacement - EKG image interpreted by myself showed normal sinus rhythm. Rate 68 bpm. QT 406. No acute ischemic changes. -IV access and laboratory workup was ordered. Patient noted to be significantly hypertensive on the monitor. Her heart rate did become significantly bradycardic at 40 to 45 bpm. I asked nursing staff to obtain an i-STAT for immediate creatinine to take the patient over for CTA imaging, due to concern for potential dissection. Repeat EKG was obtained, given that patient is now having some pauses on the hospital monitor. -EKG image obtained at 7:03 AM interpreted by myself showed normal sinus rhythm. Rate 57 bpm. QT 436. Patient is noted to have some sinus pauses, notably on this EKG seen in the lateral leads. - Laboratory workup interpreted by myself showed slight leukopenia (WBC 4.77); stable hemoglobin; normal PT/INR; stable electrolytes; normal troponin; normal lipase - CXR image reviewed by myself is negative for pneumonia, per my interpretation. - CTA chest negative for PE or dissection - Repeat troponin within normal limits - Patient usually given 2 mg IV morphine and 4 mg IV Zofran for pain management. She was noted to be significantly hypertensive and initially given 5 mg IV hydralazine. However, on repeat assessment her blood pressure is still over 200 systolic. She was given 0.4 mg of sublingual nitro and systolic blood pressure went down to 160 and patient was feeling improved. However, on further monitoring her blood pressure continued to rise and was again over 200 systolic. She was started on a nicardipine drip. Blood pressure was well-controlled and patient was asymptomatic on the nicardipine drip. The nicardipine drip was paused briefly and patient's blood pressure did creep up to 190-200 systolic again. - Discussion was had with special education case manager about patient's case and need for admission - Hospitalist consulted for admission - [facility]. I have personally spent 46 minutes of critical care time in the direct management of this patient. This includes bedside care, interpretation of diagnostic studies, and testing, discussion with consultants, patient, and family members, and other required patient management activities. This 46 minutes is in excess of all separately billable procedures. ASSESSMENT AND PLAN: Diagnosis: Chest pain; hypertensive urgency Plan: Admit Past Med/Surg History Problem List (Updated 11/15/24 @ 12:03 by Lupe Lizarraga MD) Hypertensive urgency (Acute) Chest pain (Acute) Anxiety and depression Chest pain Hypertensive urgency Status post total right knee replacement HTN, goal to be determined (Chronic) Acid reflux disease with ulcer (Chronic) Surgical wound dehiscence (Acute) Multiple fractures of ribs (Acute) Closed T12 fracture (Acute) Head injury, closed, with brief LOC (Acute) Laceration of scalp (Acute) Extensive facial fractures (Acute) Cerebral concussion Fall Orbital fracture Medical History Acid reflux CAD (coronary artery disease) Widely patent coronary anatomy with minor CAD per 05/2020 cardiac cath Hiatal hernia History of COVID-19 03/2021 HTN (hypertension) Joint pain Reason for cymbalta per pt Morbid obesity Motion sickness Right knee DJD TMJ (temporomandibular joint disorder) Right side, no locking Surgical History H/O abdominoplasty History of bladder surgery BLADDER TAC WITH COMPLETION OF HYSTERECTOMY History of cardiac cath 05/15/20 ([place]) > widely patent coronary anatomy with minor CAD History of colonoscopy History of endoscopy History of hernia surgery S/P cholecystectomy S/P hysterectomy R/T complication of childbirth/excess blood loss > partial hysterectomy Family History Father Family history of blood clots Family history of diabetes mellitus Mother Family history of diabetes mellitus Social History Smoking Status: Never smoker Do You Dip or Chew Tobacco: No; Hx Alcohol Use: No Hx Substance Use: No Preferred Language: Nigerien Communication Ability: Effective Visual Impairment: Partially Limited Hearing Ability: Normal Baggage Porter Required: No Beliefs That Will Affect Care: None marital status: Current Living Situation: Spouse current occupational status: retired Feels Safe at Home: Yes Assistive Devices: Walker Allergies Allergies Allergy/AdvReac Type Severity Reaction Status Date / Time atropine Allergy Unknown Rash Verified 11/15/24 08:37 hyoscyamine Allergy Unknown Rash Verified 11/15/24 08:37 latex Allergy Unknown Skin Verified 11/15/24 08:37 soreness phenobarbital Allergy Unknown Rash Verified 11/15/24 08:37 scopolamine Allergy Unknown "Goofy", Verified 11/15/24 08:37 mouth dryness Home Meds Home Medications Medication Instructions Recorded Confirmed hydrochlorothiazide 25 mg tablet 25 mg PO QAM PRN Retaining fluid 01/28/19 11/15/24 calcium 600 mg (as carbonate)-vit 1 tab PO BID 10/09/19 11/15/24 D3 20 mcg (800 unit) chewable tablet (Caltrate plus D) multivitamin 1 tab PO QAM 10/09/19 11/15/24 ascorbic acid (vitamin C) 500 mg 500 mg PO DAILY 11/15/24 11/15/24 tablet (Vitamin C) atenolol 25 mg tablet 25 mg PO QAM 11/15/24 11/15/24 cholecalciferol (vitamin D3) 25 25 mcg PO DAILY 11/15/24 11/15/24 mcg (1,000 unit) tablet (Vitamin D3) ferrous sulfate 324 mg (65 mg 324 mg PO DAILY 11/15/24 11/15/24 iron) tablet,delayed release omeprazole 40 mg capsule,delayed 40 mg PO QAM 11/15/24 11/15/24 release sertraline 50 mg tablet 50 mg PO QAM 11/15/24 11/15/24 triamcinolone acetonide 0.1 % 1 applic topical DAILY 11/15/24 11/15/24 topical cream Previous Rx's Medication Instructions Recorded aspirin 81 mg tablet,delayed 81 mg PO BID 45 days #90 tabs 09/22/21 release (Jose Low Dose Aspirin) Results & Data (ED) Vital Signs Vital Signs - 24 hr 11/15/24 06:31 11/15/24 06:33 11/15/24 06:43 Temperature 36.4 C L Temperature Source Temporal Artery Scan Pulse Rate 60 Pulse Rate [Apical] Pulse Rhythm Regular Pulse Strength Normal Respiratory Rate 20 Respiratory Effort / Characteristics Non-Labored Spontaneous Respiratory Depth Normal Respiratory Pattern Regular Blood Pressure 191/91 H Blood Pressure [Right Arm] Blood Pressure Mean 124 Blood Pressure Mean [Right Arm] Blood Pressure Position Sitting Blood Pressure Position [Right Arm] Pulse Oximetry 100 98 98 Oxygen Delivery Method Room Air Room Air Room Air Sepsis Recent Fever Within 48 Hours No Sepsis New/Unexplained Change in Mental Status N/A Sepsis Action Taken by Nursing No Action Required 11/15/24 06:53 11/15/24 08:21 11/15/24 08:26 Temperature Temperature Source Pulse Rate 47 L Pulse Rate [Apical] 51 L 58 L Pulse Rhythm Pulse Strength Respiratory Rate 18 15 Respiratory Effort / Characteristics Respiratory Depth Respiratory Pattern Blood Pressure Blood Pressure [Right Arm] 204/95 H 223/105 H Blood Pressure Mean Blood Pressure Mean [Right Arm] 131 144 Blood Pressure Position Blood Pressure Position [Right Arm] Pulse Oximetry 93 98 Oxygen Delivery Method Room Air Room Air Sepsis Recent Fever Within 48 Hours Sepsis New/Unexplained Change in Mental Status Sepsis Action Taken by Nursing 11/15/24 09:03 11/15/24 10:24 11/15/24 11:04 Temperature Temperature Source Pulse Rate Pulse Rate [Apical] 51 L 71 51 L Pulse Rhythm Pulse Strength Respiratory Rate 12 19 14 Respiratory Effort / Characteristics Respiratory Depth Respiratory Pattern Blood Pressure Blood Pressure [Right Arm] 162/88 H 164/92 H 177/81 H Blood Pressure Mean Blood Pressure Mean [Right Arm] 112 116 113 Blood Pressure Position Blood Pressure Position [Right Arm] Pulse Oximetry 97 99 98 Oxygen Delivery Method Room Air Room Air Room Air Sepsis Recent Fever Within 48 Hours Sepsis New/Unexplained Change in Mental Status Sepsis Action Taken by Nursing 11/15/24 11:45 Temperature Temperature Source Pulse Rate Pulse Rate [Apical] 49 L Pulse Rhythm Pulse Strength Respiratory Rate 15 Respiratory Effort / Characteristics Respiratory Depth Normal Respiratory Pattern Blood Pressure Blood Pressure [Right Arm] 183/82 H Blood Pressure Mean Blood Pressure Mean [Right Arm] 115 Blood Pressure Position Blood Pressure Position [Right Arm] Semi-fowlers Pulse Oximetry 97 Oxygen Delivery Method Room Air Sepsis Recent Fever Within 48 Hours Sepsis New/Unexplained Change in Mental Status Sepsis Action Taken by Nursing Laboratory Data 11/15/24 06:39 11/15/24 06:39 Lab Results 11/15/24 11/15/24 11/15/24 Range/Units 06:39 07:03 07:56 WBC 4.77 L (4.8-10.8) K/ul RBC 4.13 L (4.20-5.40) M/uL Hgb 12.5 (12.0-16.0) g/dl POC Hgb 11.6 L (12.0-16.0) g/dl Hct 37.6 (37.0-47.0) % POC Hct 34 L (37-47) % MCV 91.0 (80.0-100.0) fL MCH 30.3 (25.0-34.0) pg MCHC 33.2 (32.0-36.0) g/dL RDW Std Deviation 45.5 (36.4-46.3) fL RDW Coeff of Aylin 13.5 (11.5-14.5) % Plt Count 240 (130-400) K/uL MPV 10.8 (9.4-12.4) fL Immature Gran % (Auto) 0.2 % Neut % (Auto) 53.8 % Lymph % (Auto) 33.8 % [place] % (Auto) 7.5 % Eos % (Auto) 3.4 % Baso % (Auto) 1.3 % Neut # (Auto) 2.57 (1.40-6.50) K/uL Lymph # (Auto) 1.61 (1.20-3.40) K/uL [place] # (Auto) 0.36 (0.11-0.59) K/uL Eos # (Auto) 0.16 (0.00-0.50) K/uL Baso # (Auto) 0.06 (0.00-0.20) K/uL Immature Gran # (Auto) 0.01 (0.01-0.20) K/uL PT Cancelled 10.9 INR Cancelled 1.0 POC Sodium 139 (135-144) mmol/L Sodium 138 (136-145) mmol/L POC Potassium 4.1 (3.3-5.0) mmol/L Potassium 4.6 (3.5-5.1) mmol/L POC Chloride 105 (101-112) mmol/L Chloride 105 (98-107) mmol/L Carbon Dioxide 26 (21-32) mmol/L POC Total CO2 25 (24-31) mmol/L Anion Gap 7 (3-11) POC Anion Gap 14.0 L (16-25) mmol/L POC BUN 24 H (7-18) mg/dl BUN 22 (6-23) mg/dl Creatinine 0.82 (0.6-1.2) mg/dl POC Creatinine 0.9 (0.6-1.3) mg/dl Est Cr Clr Drug Dosing Not Reportable eGFR 74.55 BUN/Creatinine Ratio 26.8 H (10-20) Glucose 95 (70-99(Fasting)) mg/dl POC Glucose (other) 95 (70-99) mg/dl Calcium 9.1 (8.6-10.3) mg/dl POC Ioniz Calcium Katie 1.19 (1.12-1.32) mmol/l Magnesium 1.9 (1.7-2.4) mg/dl Total Bilirubin 0.6 (0.2-1.0) mg/dl AST 21 (13-39) U/L ALT 11 (7-52) U/L Alkaline Phosphatase 63 (34-104) U/L Troponin I High Sens 8.5 (0-14) pg/ml Total Protein 7.5 (6.0-8.3) gm/dl Albumin 4.0 (3.4-5.0) gm/dl Globulin 3.5 (2.5-4.0) gm/dl Albumin/Globulin Ratio 1.1 (0.9-2) Lipase 38 (11-82) U/L / Range/Units 08:30 WBC (4.8-10.8) K/ul RBC (4.20-5.40) M/uL Hgb (12.0-16.0) g/dl POC Hgb (12.0-16.0) g/dl Hct (37.0-47.0) % POC Hct (37-47) % MCV (80.0-100.0) fL MCH (25.0-34.0) pg MCHC (32.0-36.0) g/dL RDW Std Deviation (36.4-46.3) fL RDW Coeff of Aylin (11.5-14.5) % Plt Count (130-400) K/uL MPV (9.4-12.4) fL Immature Gran % (Auto) % Neut % (Auto) % Lymph % (Auto) % [place] % (Auto) % Eos % (Auto) % Baso % (Auto) % Neut # (Auto) (1.40-6.50) K/uL Lymph # (Auto) (1.20-3.40) K/uL [place] # (Auto) (0.11-0.59) K/uL Eos # (Auto) (0.00-0.50) K/uL Baso # (Auto) (0.00-0.20) K/uL Immature Gran # (Auto) (0.01-0.20) K/uL PT INR POC Sodium (135-144) mmol/L Sodium (136-145) mmol/L POC Potassium (3.3-5.0) mmol/L Potassium (3.5-5.1) mmol/L POC Chloride (101-112) mmol/L Chloride (98-107) mmol/L Carbon Dioxide (21-32) mmol/L POC Total CO2 (24-31) mmol/L Anion Gap (3-11) POC Anion Gap (16-25) mmol/L POC BUN (7-18) mg/dl BUN (6-23) mg/dl Creatinine (0.6-1.2) mg/dl POC Creatinine (0.6-1.3) mg/dl Est Cr Clr Drug Dosing eGFR BUN/Creatinine Ratio (10-20) Glucose (70-99(Fasting)) mg/dl POC Glucose (other) (70-99) mg/dl Calcium (8.6-10.3) mg/dl POC Ioniz Calcium Katie (1.12-1.32) mmol/l Magnesium (1.7-2.4) mg/dl Total Bilirubin (0.2-1.0) mg/dl AST (13-39) U/L ALT (7-52) U/L Alkaline Phosphatase (34-104) U/L Troponin I High Sens 10.2 (0-14) pg/ml Total Protein (6.0-8.3) gm/dl Albumin (3.4-5.0) gm/dl Globulin (2.5-4.0) gm/dl Albumin/Globulin Ratio (0.9-2) Lipase (11-82) U/L Administered Medications Hydralazine HCl (Hydralazine Hcl 20 Mg/Ml Vial) 10 mg IV Q6H PRN PRN Reason: Blood Pressure - High Stop: 12/15/24 11:29 Last Admin: 11/15/24 11:55 Dose: 10 mg Documented By: TDM Nicardipine HCl 25 mg/ Sodium (Chloride) 250 mls @ 50 mls/hr IV .Q5H CHECO; Protocol Stop: 12/15/24 08:59 Last Admin: 11/15/24 09:48 Dose: 5 mg/hr, 50 mls/hr Documented By: OSIRIS Co-signed By: MITESH Nitroglycerin (Nitroglycerin 2% Ointment 30gm Tube) 1 inch EXT Q6H CHECO Stop: 12/15/24 11:59 Last Admin: 11/15/24 11:55 Dose: 1 inch Documented By: TDAg Discontinued Medications Amlodipine Besylate (Amlodipine Besylate 5 Mg Tab) 5 mg PO NOW ONE Stop: 11/15/24 11:20 Last Admin: 11/15/24 11:55 Dose: 5 mg Documented By: JUANA Hydralazine HCl (Hydralazine Hcl 20 Mg/Ml Vial) 5 mg IV NOW ONE Stop: 11/15/24 08:24 Last Admin: 11/15/24 08:34 Dose: 5 mg Documented By: OSIRIS Ioversol (Optiray 320 125ml) 118 ml IV ONCE ONE Stop: 11/15/24 07:22 Last Admin: 11/15/24 07:22 Dose: 118 ml Documented By: MARINE Miscellaneous (Stat Iv Infusion Titration Per Protocol) 1 each N/A NOW STA Stop: 11/15/24 08:50 Last Admin: 11/15/24 09:50 Dose: 1 each Documented By: OSIRIS Morphine Sulfate (Morphine Sulfate 2 Mg/Ml Carp) 2 mg IV NOW STA Stop: 11/15/24 06:46 Last Admin: 11/15/24 08:26 Dose: Not Given Documented By: OSIRIS Nitroglycerin (Nitroglycerin Sl 0.4 Mg/Tab Tab) 0.4 mg SL NOW STA Stop: 11/15/24 08:50 Last Admin: 11/15/24 08:58 Dose: 0.4 mg Documented By: OSIRIS Ondansetron HCl (Ondansetron Inj 2 Mg/Ml 2 Ml Vial) 4 mg IV NOW STA Stop: 11/15/24 06:46 Last Admin: 11/15/24 08:26 Dose: Not Given Documented By: OSIRIS Imaging Data Radiologist's Impression: Chest X-Ray 11/15/24 06:35 EXAM: XR chest 1V portable CLINICAL HISTORY: Chest pain, nonspecific TECHNIQUE: An X-ray image of the chest is obtained in AP projection. COMPARISON: Compared to prior CXR on 09/12/2021. FINDINGS: Pulmonary Parenchyma: Bilateral emphysematous lung changes. No evidence of consolidation, collapse, or focal opacities. No pulmonary nodules are identified. No evidence of pleural effusion or pleural thickening. Heart and Mediastinum: Heart size and shape are normal. No mediastinal widening or masses. No hilar or mediastinal lymphadenopathy. Bony Thorax: Bony thorax appears intact without fractures or deformities. Soft Tissues: Soft tissues overlying the chest wall are unremarkable. IMPRESSION: 1. No acute cardiopulmonary abnormalities are identified. 2. No interval changes Electronically signed by Mata Mendoza 11-15-2024 07:40 AM Chest CTA 11/15/24 06:45 EXAM: CT angio chest dissec wo/w con CLINICAL HISTORY: chest pain radiating into back TECHNIQUE: Contiguous axial images were obtained from the neck base through the upper abdomen without and following intravenous administration of contrast material. If IV contrast material had not been administered, the likelihood of detecting abnormalities relevant to the patient's condition would have been substantially decreased. In addition, sagittal and coronal reconstructions were performed. CT scan was performed according to ALARA (as low as reasonable achievable). COMPARISON: 10/09/2019 18:14:40 VAMP LINER FINDINGS: The lungs are clear, with no focal areas of consolidation. Small pulmonary cyst of size 10.2mm in anterior segment of right upper lobe. No pulmonary nodules are seen. The central airways are patent. There are no pleural effusions. No pneumothorax is seen. No axillary, hilar, or mediastinal adenopathy is identified. The visualized thyroid is unremarkable. The heart, aorta, and pulmonary arteries are of normal size and configuration. There are coronary artery and aortic atherosclerotic calcifications. No pericardial effusion is identified. Imaged portions of the upper abdomen show bilateral renal pelvic cysts, few small cysts in left lobe of liver. No aggressive appearing osseous lesions are identified. Spondylodegenerative changes in visualised spine IMPRESSION: 1. No evidence of pulmonary embolism. 2. Small pulmonary cyst in anterior segment of right upper lobe. No evidence of pleural effusion on present study. Electronically signed by Wesly Betancourt 11-15-2024 08:51 AM Discharge Plan Visit Data Chief Complaint: Cardiac Assessment Stated Complaint: CHEST PAIN,, JAW PAIN ED Provider: Lupe Lizarraga Discharge Problem: Chest pain, Hypertensive urgency Condition: Fair Forms Stand Alone Forms: [employer] Prescriptions Prescriptions: No Action hydrochlorothiazide 25 mg tablet 25 mg PO QAM PRN (Reason: Retaining fluid ) aspirin [Jose Low Dose Aspirin] 81 mg tablet,delayed release (DR/EC) 81 mg PO BID 45 Days Qty: 90 0RF Patient Comments: Pt normally takes 81mg twice daily, but on the morning of 7/15/25 she took 162mg. Rx Instructions: Take to prevent blood clots. multivitamin Tablet 1 tab PO QAM Caltrate 600 plus D 600 mg (1,500 mg)-800 unit Tablet,Chewable 1 tab PO BID atenolol 25 mg tablet 25 mg PO QAM omeprazole 40 mg capsule,delayed release(DR/EC) 40 mg PO QAM triamcinolone acetonide 0.1 % cream 1 applic topical DAILY ascorbic acid (vitamin C) [Vitamin C] 500 mg Tablet 500 mg PO DAILY sertraline 50 mg tablet 50 mg PO QAM cholecalciferol (vitamin D3) [Vitamin D3] 25 mcg (1,000 unit) Tablet 25 mcg PO DAILY ferrous sulfate 324 mg (65 mg iron) Tablet,Delayed Release (Dr/Ec) 324 mg PO DAILY Referrals Referrals: Toney Estevez PA-C [Primary Care Provider] -
[2024-11-15] MEDS: OPTIRAY 320 125ml IV ONE (07:22)
[2024-11-15 07:28] LABS: Alanine Aminotransferase 11 U/L (7-52); Albumin Globulin Ratio 1.1 (0.9-2); Alkaline Phosphatase 63 U/L (34-104); Anion Gap 7 (3-11); Bilirubin,Total 0.6 mg/dl (0.2-1.0); Blood Urea Nitrogen 22 mg/dl (6-23); Calcium 9.1 mg/dl (8.6-10.3); Carbon Dioxide 26 mmol/L (21-32); Chloride 105 mmol/L (98-107); Globulin 3.5 gm/dl (2.5-4.0); Glucose 95 mg/dl (70-99(Fasting)); Lipase 38 U/L (11-82); Magnesium 1.9 mg/dl (1.7-2.4); Potassium 4.6 mmol/L (3.5-5.1); Sodium 138 mmol/L (136-145); Total Protein 7.5 gm/dl (6.0-8.3)
--- NOTE | 2024-11-15 07:41 | XRay Report ---
EXAM: XR chest 1V portable CLINICAL HISTORY: Chest pain, nonspecific TECHNIQUE: An X-ray image of the chest is obtained in AP projection. COMPARISON: Compared to prior CXR on 09/12/2021. FINDINGS: Pulmonary Parenchyma: Bilateral emphysematous lung changes. No evidence of consolidation, collapse, or focal opacities. No pulmonary nodules are identified. No evidence of pleural effusion or pleural thickening. Heart and Mediastinum: Heart size and shape are normal. No mediastinal widening or masses. No hilar or mediastinal lymphadenopathy. Bony Thorax: Bony thorax appears intact without fractures or deformities. Soft Tissues: Soft tissues overlying the chest wall are unremarkable. IMPRESSION: 1. No acute cardiopulmonary abnormalities are identified. 2. No interval changes Electronically signed by Mata Mendoza 11-15-2024 07:40 AM
[2024-11-15] MEDS: ONDANSETRON INJ 2 MG/ML 2 ML VIAL IV STA (08:26)
[2024-11-15] MEDS: MoRPHine SULFATE 2 MG/ML CARP IV STA (08:26)
[2024-11-15 08:40] LABS: INR 1.0 (0.9-1.1); Prothrombin Time 10.9 Seconds (9.0-12.0)
--- NOTE | 2024-11-15 08:51 | CT Scan Report ---
EXAM: CT angio chest dissec wo/w con CLINICAL HISTORY: chest pain radiating into back TECHNIQUE: Contiguous axial images were obtained from the neck base through the upper abdomen without and following intravenous administration of contrast material. If IV contrast material had not been administered, the likelihood of detecting abnormalities relevant to the patient's condition would have been substantially decreased. In addition, sagittal and coronal reconstructions were performed. CT scan was performed according to ALARA (as low as reasonable achievable). COMPARISON: 10/09/2019 18:14:40 DENTAL ASSISTANT FINDINGS: The lungs are clear, with no focal areas of consolidation. Small pulmonary cyst of size 10.2mm in anterior segment of right upper lobe. No pulmonary nodules are seen. The central airways are patent. There are no pleural effusions. No pneumothorax is seen. No axillary, hilar, or mediastinal adenopathy is identified. The visualized thyroid is unremarkable. The heart, aorta, and pulmonary arteries are of normal size and configuration. There are coronary artery and aortic atherosclerotic calcifications. No pericardial effusion is identified. Imaged portions of the upper abdomen show bilateral renal pelvic cysts, few small cysts in left lobe of liver. No aggressive appearing osseous lesions are identified. Spondylodegenerative changes in visualised spine IMPRESSION: 1. No evidence of pulmonary embolism. 2. Small pulmonary cyst in anterior segment of right upper lobe. No evidence of pleural effusion on present study. Electronically signed by Wesly Betancourt 11-15-2024 08:51 AM
[2024-11-15] MEDS: NITROGLYCERIN SL 0.4 MG/TAB TAB SL STA (08:58)
[2024-11-15] MEDS: STAT IV Infusion **Titration per Protocol STA (09:50)
--- NOTE | 2024-11-15 11:46 | History & Physical Report ---
Date of Service November 15, 2024 Assessment & Plan (1) Hypertensive urgency: Plan: History of hypertension and has been on atenolol and hydrochlorothiazide as needed Woke up early in the morning with chest pressure and also headache and came to emergency room Blood pressure was noted to be very high with systolic more than 200 and required brief period of intravenous nicardipine drip Blood pressure remains elevated at around systolic 180s Norvasc 5 mg has been added and he will be getting Nitropaste 1 inch every 4 hourly and hydralazine intravenously as needed to control the blood pressure Will ass Lisinopril and discontinue Atenolol due to Bradycardia Will monitor blood pressure in the hospital (2) Chest pain: Plan: Presented with chest pain since early in the morning without any associated symptoms of sweating, shortness of breath, any dizziness or nausea or vomiting EKG showed bradycardia but no other ST-T wave abnormalities and initial troponins were negative Will get serial troponins and also echocardiogram CTA is negative for any Embolism (3) Acid reflux disease with ulcer: Plan: Denies any symptoms of reflux at this time and will continue omeprazole (4) Anxiety and depression: Plan: Has an anxiety symptoms and takes sertraline No acute anxiety and no depression Will continue sertraline in the hospital Significant history of spinal stenosis without any claudication Does not have any acute symptoms now Takes Celebrex occasionally Plan DVT prophylaxis subcu heparin CODE STATUS Full History of Present Illness Chief Complaint: Chest pain with occipital headache since this morning Primary Care Provider: Toney Estevez PA-C Is a 74-year-old female significant past medical history of gastroesophageal reflux with esophagitis, spinal stenosis without claudication, hypertension, history of depression and anxiety apparently has been complaining of chest pressure/pain and pain at the back in between shoulder blades and also occipital area of the head since this morning. She denies any shortness of breath assoc iated with it and denies any nausea or vomiting or any neurological symptoms. She remains free from any pain in the emergency room and noted to have blood pressure fairly high with systolic more than 200 that she required at 1 point to start nicardipine drip. Her blood pressure has been trending around 190-190 systolic in the nicardipine has been off. Her EKG and troponins are unremarkable and the blood works are unremarkable too. She will be admitted to [facility] telemetry admit and will be ruled in an echo will be done. She was given amlodipine 5 mg and will continue with Nitropaste on plan to control the blood pressure. Allergies Allergy/AdvReac Type Severity Reaction Status Date / Time atropine Allergy Unknown Rash Verified 11/15/24 08:37 hyoscyamine Allergy Unknown Rash Verified 11/15/24 08:37 latex Allergy Unknown Skin Verified 11/15/24 08:37 soreness phenobarbital Allergy Unknown Rash Verified 11/15/24 08:37 scopolamine Allergy Unknown "Goofy", Verified 11/15/24 08:37 mouth dryness Home Medications Medication Instructions Recorded Confirmed Type hydrochlorothiazide 25 mg tablet 25 mg PO QAM PRN Retaining fluid 01/28/19 11/15/24 History calcium 600 mg (as carbonate)-vit 1 tab PO BID 10/09/19 11/15/24 History D3 20 mcg (800 unit) chewable tablet (Caltrate plus D) multivitamin 1 tab PO QAM 10/09/19 11/15/24 History aspirin 81 mg tablet,delayed 81 mg PO BID 45 days #90 tabs 09/22/21 11/15/24 Rx release (Jose Low Dose Aspirin) ascorbic acid (vitamin C) 500 mg 500 mg PO DAILY 11/15/24 11/15/24 History tablet (Vitamin C) atenolol 25 mg tablet 25 mg PO QAM 11/15/24 11/15/24 History cholecalciferol (vitamin D3) 25 25 mcg PO DAILY 11/15/24 11/15/24 History mcg (1,000 unit) tablet (Vitamin D3) ferrous sulfate 324 mg (65 mg 324 mg PO DAILY 11/15/24 11/15/24 History iron) tablet,delayed release omeprazole 40 mg capsule,delayed 40 mg PO QAM 11/15/24 11/15/24 History release sertraline 50 mg tablet 50 mg PO QAM 11/15/24 11/15/24 History triamcinolone acetonide 0.1 % 1 applic topical DAILY 11/15/24 11/15/24 History topical cream Past Med/Surg History Problem List (Updated 11/15/24 @ 12:03 by Lupe Lizarraga MD) Hypertensive urgency (Acute) Chest pain (Acute) Anxiety and depression Chest pain Hypertensive urgency Status post total right knee replacement HTN, goal to be determined (Chronic) Acid reflux disease with ulcer (Chronic) Surgical wound dehiscence (Acute) Multiple fractures of ribs (Acute) Closed T12 fracture (Acute) Head injury, closed, with brief LOC (Acute) Laceration of scalp (Acute) Extensive facial fractures (Acute) Cerebral concussion Fall Orbital fracture Medical History Acid reflux CAD (coronary artery disease) Widely patent coronary anatomy with minor CAD per 05/2020 cardiac cath Hiatal hernia History of COVID-19 03/2021 HTN (hypertension) Joint pain Reason for cymbalta per pt Morbid obesity Motion sickness Right knee DJD TMJ (temporomandibular joint disorder) Right side, no locking Surgical History H/O abdominoplasty History of bladder surgery BLADDER TAC WITH COMPLETION OF HYSTERECTOMY History of cardiac cath 05/15/20 ([place]) > widely patent coronary anatomy with minor CAD History of colonoscopy History of endoscopy History of hernia surgery S/P cholecystectomy S/P hysterectomy R/T complication of childbirth/excess blood loss > partial hysterectomy Family History Father Family history of blood clots Family history of diabetes mellitus Mother Family history of diabetes mellitus Social History Smoking Status: Never smoker Do You Dip or Chew Tobacco: No; Hx Alcohol Use: No Hx Substance Use: No Preferred Language: Georgian Communication Ability: Effective Visual Impairment: Partially Limited Hearing Ability: Normal Workers' Compensation Mediator Required: No Beliefs That Will Affect Care: None marital status: Current Living Situation: Spouse current occupational status: retired Other Information That Helps Us Care for You: No Feels Safe at Home: Yes Assistive Devices: Cane and Glasses Review of Systems Review of Systems: All systems reviewed and are unremarkable except as noted below Physical Exam Physical Exam: Lying in bed without any acute distress Constitutional: well developed, well nourished and average body habitus; not ill appearing Eyes: PERRL, conjunctivae normal, anicteric sclerae ENMT: external ear and nose normal, oropharynx normal Neck: trachea midline, no thyromegaly Respiratory: no respiratory distress Auscultation: lungs clear to auscultation bilaterally Cardiovascular: Rate/Rhythm: regular rate, regular rhythm and + bradycardic Heart Sounds: normal S1 and normal S2; no murmur Extremities: no edema Gastrointestinal (Abdomen): Inspection/Auscultation: normal bowel sounds; abdomen not distended Percussion/Palpation: abdomen soft; abdomen nontender Musculoskeletal: No acute arthritis involving any of the joint Neurologic: normal touch/pain/proprioception and moves all extremities; no focal motor deficits Psychiatric: A+Ox3, euthymic affect Lymphatic: no cervical or axillary lymphadenopathy Results & Data Results & Data Vital Signs (Past 12 Hours) Vital Signs Temp Pulse Pulse Resp BP BP Pulse Ox 11/15/24 11:04 51 L 14 177/81 H 98 11/15/24 10:24 71 19 164/92 H 99 11/15/24 09:03 51 L 12 162/88 H 97 11/15/24 08:26 47 L 11/15/24 08:21 58 L 15 223/105 H 98 11/15/24 06:53 51 L 18 204/95 H 93 11/15/24 06:43 98 11/15/24 06:33 98 11/15/24 06:31 36.4 C L 60 20 191/91 H 100 O2 Del Method 11/15/24 11:04 Room Air 11/15/24 10:24 Room Air 11/15/24 09:03 Room Air 11/15/24 08:26 11/15/24 08:21 Room Air 11/15/24 06:53 Room Air 11/15/24 06:43 Room Air 11/15/24 06:33 Room Air 11/15/24 06:31 Room Air Laboratory Results Short CBC 11/15/24 Range/Units 06:39 WBC 4.77 L (4.8-10.8) K/ul Hgb 12.5 (12.0-16.0) g/dl Hct 37.6 (37.0-47.0) % Plt Count 240 (130-400) K/uL BMP 11/15/24 06:39 Sodium 138 Potassium 4.6 Chloride 105 Carbon Dioxide 26 BUN 22 Creatinine 0.82 Glucose 95 Calcium 9.1 Liver Function 11/15/24 Range/Units 06:39 Total Bilirubin 0.6 (0.2-1.0) mg/dl AST 21 (13-39) U/L ALT 11 (7-52) U/L Alkaline Phosphatase 63 (34-104) U/L Albumin 4.0 (3.4-5.0) gm/dl Medications Administered Current Inpatient Medications Amlodipine Besylate (Amlodipine Besylate 5 Mg Tab) 5 mg PO QAM CHECO Stop: 12/16/24 08:59 Hydralazine HCl (Hydralazine Hcl 20 Mg/Ml Vial) 10 mg IV Q6H PRN PRN Reason: Blood Pressure - High Stop: 12/15/24 11:29 Nicardipine HCl 25 mg/ Sodium (Chloride) 250 mls @ 50 mls/hr IV .Q5H CHECO; Protocol Stop: 12/15/24 08:59 Last Admin: 11/15/24 09:48 Dose: 5 mg/hr, 50 mls/hr Nitroglycerin (Nitroglycerin 2% Ointment 30gm Tube) 1 inch EXT Q6H CHECO Stop: 12/15/24 11:59
--- NOTE | 2024-11-15 11:47 | Electrocardiogram Report ---
Test Reason : Blood Pressure : */* mmHG Vent. Rate : 68 BPM Atrial Rate : 68 BPM P-R Int : 224 ms QRS Dur : 80 ms QT Int : 406 ms P-R-T Axes : 74 29 51 degrees QTcB Int : 431 ms Sinus rhythm with 1st degree A-V block Otherwise normal ECG When compared with ECG of 12-Sep-2021 14:45, No significant change was found Confirmed by Noel Woods ([id number]) on 11/15/2024 11:47:26 AM Referred By: Confirmed By: Noel Woods
--- NOTE | 2024-11-15 11:48 | Electrocardiogram Report ---
Test Reason : Blood Pressure : */* mmHG Vent. Rate : 57 BPM Atrial Rate : 57 BPM P-R Int : 204 ms QRS Dur : 80 ms QT Int : 436 ms P-R-T Axes : 76 40 56 degrees QTcB Int : 424 ms Sinus bradycardia with marked sinus arrhythmia Otherwise normal ECG When compared with ECG of 15-Nov-2024 06:38, (unconfirmed) No significant change was found Confirmed by Noel Woods ([id number]) on 11/15/2024 11:48:19 AM Referred By: REFERRED SELF Confirmed By: Noel Woods
[2024-11-15] MEDS: NITROGLYCERIN 2% OINTMENT 30GM TUBE EXT SCH (11:55)
[2024-11-15] MEDS: ACETAMINOPHEN 500 MG TAB PO PRN (13:58)
[2024-11-15] MEDS: ASPIRIN 81 MG ECTAB PO SCH (20:07)
[2024-11-15] MEDS: CALCIUM 600MG + VIT D 400 IU TAB PO SCH (20:07)
[2024-11-15] MEDS: KETOROLAC TROMETHAMINE 15 MG/ML VIAL IV ONE (20:15)
[2024-11-15] MEDS: HEPARIN SOD 5,000 UNIT/0.5 ML VIAL SQ SCH (20:15)
[2024-11-16 07:37] LABS: Anion Gap 6.0 (3-11); Blood Urea Nitrogen 17.0 mg/dl (6-23); Calcium 8.7 mg/dl (8.6-10.3); Carbon Dioxide 27.0 mmol/L (21-32); Chloride 107.0 mmol/L (98-107); Creatinine Clr Calc Pharmacy 62.4 ml/min; Glucose 89.0 mg/dl (70-99(Fasting)); Magnesium 1.9 mg/dl (1.7-2.4); Potassium 4.3 mmol/L (3.5-5.1); Sodium 140.0 mmol/L (136-145)
[2024-11-16] MEDS ORDERED: ASCORBIC ACID 500 MG TAB PO SCH (09:00)
[2024-11-16] MEDS: SERTRALINE HCL 50 MG TABLET PO SCH (09:28)
[2024-11-16] MEDS: TRIAMCINOLONE ACET 0.1% CR 15 GM TUBE TOP SCH (09:29)
[2024-11-16] MEDS: CHOLECALCIFEROL 25 MCG (1000 UNITS) TAB PO SCH (09:30)
[2024-11-16] MEDS: FERROUS SULFATE 325 MG TAB PO SCH (09:30)
[2024-11-16] MEDS: MULTIVITAMIN TAB PO SCH (09:30)
[2024-11-16 10:38] VITALS: BP 117/56; PULSE 54; RESP 18; TEMP 98.1; O2SAT 99
--- NOTE | 2024-11-16 12:57 | Communication Note ---
By CMS guidelines, a determination that the admission or continued stay is not medically necessary has been made by a member of the UR committee and a physician for this hospital stay, therefore a Code 44 will be completed and the Inpatient admission will be changed to outpatient. Date of Service: November 16, 2024
--- NOTE | 2024-11-16 13:13 | Electrocardiogram Report ---
Test Reason : Blood Pressure : */* mmHG Vent. Rate : 59 BPM Atrial Rate : 59 BPM P-R Int : 200 ms QRS Dur : 80 ms QT Int : 480 ms P-R-T Axes : 75 41 46 degrees QTcB Int : 475 ms Sinus bradycardia with sinus arrhythmia Otherwise normal ECG When compared with ECG of 15-Nov-2024 07:03, QT has lengthened Confirmed by Noel Woods ([id number]) on 11/16/2024 1:13:18 PM Referred By: REFERRED SELF Confirmed By: Noel Woods
--- NOTE | 2024-11-16 16:10 | Discharge Summary ---
Discharge Summary Date of Service November 16, 2024 Principal Dx & Hospital Course #1 = Principal Diagnosis (1) Hypertensive urgency: History of hypertension and has been on atenolol and hydrochlorothiazide as needed Woke up early in the morning with chest pressure and also headache and came to emergency room Blood pressure was noted to be very high with systolic more than 200 and required brief period of intravenous nicardipine drip Blood pressure remains elevated at around systolic 180s Norvasc 5 mg has been added and he will be getting Nitropaste 1 inch every 4 hourly and hydralazine intravenously as needed to control the blood pressure Will ass Lisinopril and discontinue Atenolol due to Bradycardia Will monitor blood pressure in the hospital (2) Chest pain: Presented with chest pain since early in the morning without any associated symptoms of sweating, shortness of breath, any dizziness or nausea or vomiting EKG showed bradycardia but no other ST-T wave abnormalities and initial troponins were negative Will get serial troponins and also echocardiogram CTA is negative for any Embolism (3) Acid reflux disease with ulcer: Denies any symptoms of reflux at this time and will continue omeprazole (4) Anxiety and depression: Has an anxiety symptoms and takes sertraline No acute anxiety and no depression Will continue sertraline in the hospital Significant history of spinal stenosis without any claudication Does not have any acute symptoms now Takes Celebrex occasionally Plan DVT prophylaxis subcu heparin CODE STATUS Full Notes For Next Care Provider Medication Changes From Visit 4-year-old female significant past medical history of gastroesophageal reflux with esophagitis, spinal stenosis without claudication, hypertension, history of depression and anxietyhas been complaining of chest pressure/pain and pain at the back in between shoulder blades and also occipital area of the head. ADmitted to medicine for hypertensive urgency, BP came down quickly. Per patient very anxious and stressed at home. BP meds titrated with signficant improvement in BP. On 11/16/2024 patient medically stable to discharge home. To do: [ ] titrate BP meds Admission HPI Per Admitting Provider Is a 74-year-old female significant past medical history of gastroesophageal reflux with esophagitis, spinal stenosis without claudication, hypertension, history of depression and anxiety apparently has been complaining of chest pressure/pain and pain at the back in between shoulder blades and also occipital area of the head since this morning. She denies any shortness of breath associated with it and denies any nausea or vomiting or any neurological symptoms. She remains free from any pain in the emergency room and noted to have blood pressure fairly high with systolic more than 200 that she required at 1 point to start nicardipine drip. Her blood pressure has been trending around 190-190 systolic in the nicardipine has been off. Her EKG and troponins are unremarkable and the blood works are unremarkable too. She will be admitted to [facility] telemetry admit and will be ruled in an echo will be done. She was given amlodipine 5 mg and will continue with Nitropaste on plan to control the blood pressure. Discharge Exam Gen: A&O 3 NAD HEENT: NCAT, EOMI, not icteric. External ears normal. No rhinorrhea. Moist mucous membranes. Neck: Supple, full range of motion, no observable masses, No meningeal sign. Lungs: No Respiratory distress. CV: RRR, no edema. Abdomen: Soft, nondistended, No rebound tenderness. MSK: No joint swelling, no redness. Skin: No rashes, petechiae, lesions. Normal color per patient. Neuro: Normal Gait, Grossly intact. Psych: Appropriate for situation. Updated Medication List Medication Instructions Recorded Confirmed Type calcium 600 mg (as carbonate)-vit 1 tab PO BID 10/09/19 11/15/24 History D3 20 mcg (800 unit) chewable tablet (Caltrate plus D) multivitamin 1 tab PO QAM 10/09/19 11/15/24 History aspirin 81 mg tablet,delayed 81 mg PO BID 45 days #90 tabs 09/22/21 11/15/24 Rx release (Jose Low Dose Aspirin) ascorbic acid (vitamin C) 500 mg 500 mg PO DAILY 11/15/24 11/15/24 History tablet (Vitamin C) cholecalciferol (vitamin D3) 25 25 mcg PO DAILY 11/15/24 11/15/24 History mcg (1,000 unit) tablet (Vitamin D3) ferrous sulfate 324 mg (65 mg 324 mg PO DAILY 11/15/24 11/15/24 History iron) tablet,delayed release omeprazole 40 mg capsule,delayed 40 mg PO QAM 11/15/24 11/15/24 History release sertraline 50 mg tablet 50 mg PO QAM 11/15/24 11/15/24 History triamcinolone acetonide 0.1 % 1 applic topical DAILY 11/15/24 11/15/24 History topical cream acetaminophen 325 mg tablet 650 mg (2 x 325 mg) PO Q4H PRN 11/16/24 Rx (Tylenol) fever or pain #30 tabs amlodipine 5 mg tablet 5 mg PO QAM #30 tabs 11/16/24 Rx lisinopril 10 mg tablet 10 mg PO QAM #30 tabs 11/16/24 Rx ondansetron 4 mg disintegrating 4 mg PO Q8H PRN nausea and 11/16/24 Rx tablet vomiting 4 days #14 tabs Hospital Stay Data Consultations 11/15/24 11:01 ED Decision to Admit Stat 11/15/24 11:19 ED Decision to Admit Stat Diagnostic Imagining Performed 11/15/24 06:45 CTA chest dissec wo/w con [CT angio chest dissec wo/w con] Stat Pending Results Patient Have Any Pending Studies at Discharge: No Discharge Instructions Given to Patient (Per Discharging Provider) 1. Please take medications as prescribed. 2. Follow up with PCP for chronic hypertension management. Total Time Total Time Spent Total Time Spent (In Minutes): I spent a total of 35 minutes in direct patient care, including [id number] time with the patient and/or family, reviewing medical records, ordering and reviewing diagnostic tests, and coordinating care with other healthcare providers. This time includes: history taking, physical examination, medical decision making, counseling, ECG interpretation, imaging interpretation, lab interpretation, orders, and education, excluding time spent in the performance of separately billed services.
--- NOTE | 2024-11-16 17:10 | Communication Note ---
Date of Service: November 16, 2024 Code 44 attestation; The chart reviewed and noted that appropriate actions were taken by attending physician. By CMS guidelines, a determination that the admission or continued stay is not medically necessary has been made by a member of the UR committee and a physician for this hospital stay, therefore a Code 44 will be completed and the Inpatient admission will be changed to outpatient. DR Ag Russ Member UR Committee
== END 2024-11-16 15:06 | disposition home or self-care (01) ==
LOC: ED 06:29 → INTOOBSV 11:46 → 2S 11:46 → SUATTDRO 11:46 → 2S 12:30